=== PATIENT | female | born 1940 | race Caucasian/White ===

== ENCOUNTER → 2017-10-05 | Day surgery (SDC) | payer OTHER ==
[2017-08-31 13:54] VITALS: Ht 167.6 cm; Wt 102.3 kg
[~2017-10-05] VITALS: Ht 167.6 cm; Wt 102.3 kg
[~2017-10-05] MED LIST: 500ML BSS 0.3ML EPI 1:1000PF IRRIG ONE; ACETAMINOPHEN 325 MG TAB PO PRN; AMVISC PLUS 0.8ML SYRINGE INT OCU ONE; ASPI81TA28 PO; ATROPINE SULFATE 0.1 MG/ML 5ML SYR IV PRN; BSS FLUSH ONE; CALC600T37 PO; CALC625T PO; CYAN500T PO; EpHEDrine SULFATE INJ 50 MG/ML AMP IV PRN; EpINEphrine INJ 1MG/ML AMP 1 MG/ML AMP ONE; FENTANYL CITRATE INJ 50 MCG/1 ML 2 ML VIAL ONE; HYZ/10015 PO; LANS15CA6 PO; LIDOCAINE 3.5% OPH GEL PER APPLICATION CHARGE ONE; LIDOCAINE HCL 1% MPF 2 ML VIAL ONE; MIDAZOLAM HCL 1 MG/ML 2ML VIAL ONE; MULTTAB58 PO; OXYM0.0592; PHENYLEPHRINE HCL 10% OP SOLN PER DROP CHARGE OPL SCH; POVIDONE-IODINE OP SOLN 30 ML BTL ONE; PROPARACAINE 0.5% OP SOLN PER DROP CHARGE OPL SCH; SIMV10TA2 PO; TOBRAMYCIN/DEXAMETHASONE OPH OINT PER APPLN CHARGE ONE
[2017-10-05] MEDS: PHENYLEPHRINE HCL 2.5% OP SOLN PER DROP CHARGE OPL SCH ×2 (10:27→10:36)
[2017-10-05] MEDS: TROPICAMIDE 1% OP SOLN PER DROP CHARGE OPL SCH ×2 (10:31→10:37)
[2017-10-05] MEDS: CYCLOPENTOLATE HCL 1% OP SOLN PER DROP CHARGE OPL SCH ×2 (10:32→10:38)
[2017-10-05] MEDS: KETOROLAC 0.5% OP SOLN PER DROP CHARGE OPL SCH ×2 (10:33→10:39)
[2017-10-05] MEDS: GATIFLOXACIN OP SOLN PER DROP CHARGE OPL SCH ×2 (10:34→10:40)
--- NOTE | 2017-10-05 10:52 | History & Physical Bridge - [place] ---
H&P Re-Evaluation Bridge Note: I have examined the patient, reviewed the History & Physical and in the interval since the performance of the History & Physical I have noted the following changes of clinical significance: Diagnosis: Left Cataract Procedure: Left Cataract Removal with Lens Implant No changes noted
--- NOTE | 2017-10-05 11:21 | [facility] Operative Report ---
Operative Report Date of Service Oct 05, 2017. Operative Report 1. PREOPERATIVE DIAGNOSIS: Cataract of the left eye. 2. POSTOPERATIVE DIAGNOSIS: Same. 3. PROCEDURE: Phacoemulsification with intraocular lens implantation of the left eye. SURGEON: Dr. Blake Calle. ANESTHESIA: Topical Lidocaine gel, 1% Non- Preserved intracameral Lidocaine, and monitored intravenous sedation. INDICATIONS FOR THE PROCEDURE: The patient is a 76 - year-old female with a history of cataract of the left eye causing significant visual impairment. The details of the proposed procedure were explained to the patient who asked appropriate questions and following discussion of all risks, benefits and alternatives agreed to have the procedure done. 4. OPERATION AND FINDINGS: DESCRIPTION OF PROCEDURE: After informed consent was obtained, the patient was brought to the Operating Room at the [facility]. The patient was placed in a supine position and then the left eye was prepped and draped in the usual sterile fashion for intraocular surgery. A drop of topical Lidocaine gel was placed in the operative eye. A wire lid speculum was then placed in the fornices. A corneal paracentesis was then created temporally. The Non-Preserved Lidocaine was then instilled into the anterior chamber. The anterior chamber was then pressurized with viscoelastic. A 2.0 mm clear corneal incision was then created temporally. A cystotome was inserted into the anterior chamber and used to create a tear in the anterior lens capsule. This capsular tear was then used to create a small flap and the flap was dragged in a counterclockwise direction in order to create a continuous curvilinear capsulorrhexis. Hydrodissection was accomplished with balanced salt solution. Phacoemulsification of the lens nucleus was then performed in a standard [id number] technique. The phaco time was 30 seconds with an average power of 16 %. The remaining cortical material was removed using irrigation aspiration. The capsular bag was then filled with viscoelastic. A [employer]ch [employer] Lomb MI60L +19.0 diopters lens was then loaded into the injector and injected into the capsular bag. The remaining viscoelastic was removed with the irrigation aspiration handpiece. The wound was hydrated and then checked and found to be watertight. The intraocular pressure was checked and found to be adequate. The wire lid speculum was removed and the patient's face was cleaned and dried. TobraDex ointment was placed in the inferior fornix. The patient was discharged to the Recovery Room having tolerated the procedure well. There were no complications. The patient will be seen tomorrow in the office for follow-up. I attest to the content of the Intraoperative Record and any orders documented therein. Any exceptions are noted below.
--- NOTE | 2017-10-05 11:22 | Discharge Instructions-SurgCtr ---
Discharge Instructions Date of Service Oct 05, 2017. Visit Reason for Visit: Cataract Left Eye Discharge Discharge Diagnosis / Problem: cataract Discharge Goals Goal(s): Improve function Medications Stopped Medications Name(s): Did not take medications today. Activity Recommendations Activity Limitations: per Instructions/Follow-up section Anesthesia . Post Anesthesia Instructions: If you have had General Anesthesia or IV Sedation: * Do not drive today. * Resume driving when surgeon permits. * Do not make important decisions or sign legal documents today. * Call surgeon for: 1. Temperature elevations greater than 101 degrees F. 2. Uncontrollable pain. 3. Excessive bleeding. 4. Persistent nausea and vomiting. 5. Medication intolerance (nausea, vomiting or rash). * For nausea and vomiting use only clear liquids such as: tea, soda, bouillon until nausea subsides, then gradually increase diet as tolerated. * If you have any concerns or questions, call your surgeon's office. If physician is unavailable and it is an emergency, call 911 or go to the nearest emergency room. . Diet Recommendations Home Diet: resume previous diet Procedures Procedures Performed: Left Cataract Phacoemulsification With Intraocular Lens Implant Pending Studies Studies pending at discharge: no Medical Emergencies . Who to Call and When: Medical Emergencies: If at any time you feel your situation is an emergency, please call 911 immediately. . Non-Emergent Contact Non-Emergency issues call your: Credit Risk Specialist . . "Provider Documentation" section prepared by Blake Calle. .
[2017-10-05 11:26] VITALS: TEMP 36.9
--- NOTE | 2017-10-05 11:42 | Anesthesia Progress Nt - [facility] ---
Anesthesia Post Op Note Date & Time Oct 05, 2017 at 11:42 Vital Signs Pain Intensity: 0 Vital Signs Past 12 Hours Date Time Temp Pulse Resp B/P (MAP) Pulse Ox O2 Delivery O2 Flow Rate FiO2 10/05/17 11:26 36.9 82 16 178/82 (114) 95 Room Air 10/05/17 10:16 36.6 92 20 161/85 (110) 94 Room Air Notes Mental Status: alert / awake / arousable, participated in evaluation Pt Amnestic to Procedure: Yes Nausea / Vomiting: adequately controlled Pain: adequately controlled Airway Patency, RR, SpO2: stable & adequate BP & HR: stable & adequate Hydration State: stable & adequate Anesthetic Complications: no major complications apparent
[2017-10-05 11:49] VITALS: BP 137/82; PULSE 78; O2SAT 95
== END | disposition home or self-care (01) ==
LOC: X.SURG 09:49
PROVIDERS: ATTEND Ophthalmology
DX: E11.36 Type 2 diabetes mellitus with diabetic cataract (principal); H26.9 Unspecified cataract; I10 Essential (primary) hypertension; Z98.890 Other specified postprocedural states; Z98.818 Other dental procedure status; Z98.51 Tubal ligation status; Z90.13 Acquired absence of bilateral breasts and nipples; Z90.49 Acquired absence of other specified parts of digestive tract; Z79.899 Other long term (current) drug therapy; Z79.82 Long term (current) use of aspirin

== ENCOUNTER → 2017-11-02 | Day surgery (SDC) | payer OTHER ==
[2017-10-12 09:21] VITALS: Ht 167.6 cm; Wt 102.3 kg
[~2017-11-02] VITALS: Ht 167.6 cm; Wt 102.3 kg
[~2017-11-02] MED LIST changes: +CITA10TA8 PO; -FENTANYL CITRATE INJ 50 MCG/1 ML 2 ML VIAL ONE; +LACTATED RINGER'S 1000ML 500 ML IV SCH; +OCUCOAT 1 ML SOLN IO ONE; -PHENYLEPHRINE HCL 10% OP SOLN PER DROP CHARGE OPL SCH; +PHENYLEPHRINE HCL 10% OP SOLN PER DROP CHARGE OPR SCH; -PROPARACAINE 0.5% OP SOLN PER DROP CHARGE OPL SCH; +PROPARACAINE 0.5% OP SOLN PER DROP CHARGE OPR SCH
[2017-11-02] MEDS: PHENYLEPHRINE HCL 2.5% OP SOLN PER DROP CHARGE OPR SCH ×2 (09:48→09:53)
[2017-11-02] MEDS: TROPICAMIDE 1% OP SOLN PER DROP CHARGE OPR SCH ×2 (09:49→09:54)
[2017-11-02] MEDS: CYCLOPENTOLATE HCL 1% OP SOLN PER DROP CHARGE OPR SCH ×2 (09:50→09:55)
[2017-11-02] MEDS: KETOROLAC 0.5% OP SOLN PER DROP CHARGE OPR SCH ×2 (09:51→09:56)
[2017-11-02] MEDS: GATIFLOXACIN OP SOLN PER DROP CHARGE OPR SCH ×2 (09:52→10:09)
--- NOTE | 2017-11-02 10:06 | History & Physical Bridge - [place] ---
H&P Re-Evaluation Bridge Note: I have examined the patient, reviewed the History & Physical and in the interval since the performance of the History & Physical I have noted the following changes of clinical significance: No changes noted
--- NOTE | 2017-11-02 10:38 | [facility] Operative Report ---
Operative Report Date of Service Nov 02, 2017. Operative Report 1. PREOPERATIVE DIAGNOSIS: Cataract of the right eye. 2. POSTOPERATIVE DIAGNOSIS: Same. 3. PROCEDURE: Phacoemulsification with intraocular lens implantation of the right eye. SURGEON: Dr. Blake Calle. ANESTHESIA: Topical Lidocaine gel, 1% Non- Preserved intracameral Lidocaine, and monitored intravenous sedation. INDICATIONS FOR THE PROCEDURE: The patient is a 76 - year-old female with a history of cataract of the right eye causing significant visual impairment. The details of the proposed procedure were explained to the patient who asked appropriate questions and following discussion of all risks, benefits and alternatives agreed to have the procedure done. 4. OPERATION AND FINDINGS: DESCRIPTION OF PROCEDURE: After informed consent was obtained, the patient was brought to the Operating Room at the [facility]. The patient was placed in a supine position and then the right eye was prepped and draped in the usual sterile fashion for intraocular surgery. A drop of topical Lidocaine gel was placed in the operative eye. A wire lid speculum was then placed in the fornices. A corneal paracentesis was then created temporally. The Non-Preserved Lidocaine was then instilled into the anterior chamber. The anterior chamber was then pressurized with viscoelastic. A 2.0 mm clear corneal incision was then created temporally. A cystotome was inserted into the anterior chamber and used to create a tear in the anterior lens capsule. This capsular tear was then used to create a small flap and the flap was dragged in a counterclockwise direction in order to create a continuous curvilinear capsulorrhexis. Hydrodissection was accomplished with balanced salt solution. Phacoemulsification of the lens nucleus was then performed in a standard [id number] technique. The phaco time was 22 seconds with an average power of 14 %. The remaining cortical material was removed using irrigation aspiration. The capsular bag was then filled with viscoelastic. A Bausch [employer] Lomb MI60L +18.5 diopters lens was then loaded into the injector and injected into the capsular bag. The remaining viscoelastic was removed with the irrigation aspiration handpiece. The wound was hydrated and then checked and found to be watertight. The intraocular pressure was checked and found to be adequate. The wire lid speculum was removed and the patient's face was cleaned and dried. TobraDex ointment was placed in the inferior fornix. The patient was discharged to the Recovery Room having tolerated the procedure well. There were no complications. The patient will be seen tomorrow in the office for follow-up. I attest to the content of the Intraoperative Record and any orders documented therein. Any exceptions are noted below.
--- NOTE | 2017-11-02 10:38 | Discharge Instructions-SurgCtr ---
Discharge Instructions Date of Service Nov 02, 2017. Visit Reason for Visit: Cataract Right Eye Discharge Discharge Diagnosis / Problem: cataract Discharge Goals Goal(s): Improve function Activity Recommendations Activity Limitations: per Instructions/Follow-up section Anesthesia . Post Anesthesia Instructions: If you have had General Anesthesia or IV Sedation: * Do not drive today. * Resume driving when surgeon permits. * Do not make important decisions or sign legal documents today. * Call surgeon for: 1. Temperature elevations greater than 101 degrees F. 2. Uncontrollable pain. 3. Excessive bleeding. 4. Persistent nausea and vomiting. 5. Medication intolerance (nausea, vomiting or rash). * For nausea and vomiting use only clear liquids such as: tea, soda, bouillon until nausea subsides, then gradually increase diet as tolerated. * If you have any concerns or questions, call your surgeon's office. If physician is unavailable and it is an emergency, call 911 or go to the nearest emergency room. . Diet Recommendations Home Diet: resume previous diet Procedures Procedures Performed: Right Cataract Phacoemulsification With Intraocular Lens Implant Pending Studies Studies pending at discharge: no Medical Emergencies . Who to Call and When: Medical Emergencies: If at any time you feel your situation is an emergency, please call 911 immediately. . Non-Emergent Contact Non-Emergency issues call your: Lpn Cma . . "Provider Documentation" section prepared by Blake Calle. .
[2017-11-02 10:40] VITALS: TEMP 36.8
--- NOTE | 2017-11-02 10:51 | Anesthesia Progress Nt - [facility] ---
Anesthesia Post Op Note Date & Time Nov 02, 2017 at 10:51 Vital Signs Pain Intensity: 0 Vital Signs Past 12 Hours Date Time Temp Pulse Resp B/P (MAP) Pulse Ox O2 Delivery O2 Flow Rate FiO2 11/02/17 10:40 36.8 71 14 146/86 (106) 97 Room Air 11/02/17 09:39 36.5 76 18 166/91 (116) 96 Room Air Notes Mental Status: alert / awake / arousable, participated in evaluation Pt Amnestic to Procedure: Yes Nausea / Vomiting: adequately controlled Pain: adequately controlled Airway Patency, RR, SpO2: stable & adequate BP & HR: stable & adequate Hydration State: stable & adequate Anesthetic Complications: no major complications apparent
[2017-11-02 10:57] VITALS: BP 135/91; PULSE 80; O2SAT 96
== END | disposition home or self-care (01) ==
LOC: X.SURG 09:19
PROVIDERS: ATTEND Ophthalmology
DX: H26.9 Unspecified cataract (principal); I10 Essential (primary) hypertension; Z98.42 Cataract extraction status, left eye; F32.9 Major depressive disorder, single episode, unspecified; E78.5 Hyperlipidemia, unspecified; Z79.82 Long term (current) use of aspirin; Z87.891 Personal history of nicotine dependence

== ENCOUNTER 2021-11-16 22:19 | Inpatient (IN) ==
[2021-11-16] MEDS ORDERED: MoRPHine SULFATE 4 MG/ML 1 ML CARP\\VIAL IV STA (22:47)
[2021-11-16] MEDS ORDERED: ONDANSETRON INJ 2 MG/ML 2 ML VIAL IV STA (22:47)
--- NOTE | 2021-11-16 22:59 | Emergency Department Note ---
History of Present Illness General Chief complaint: Flank Pain Stated complaint: BACK PAIN Time Seen by Provider: 11/16/21 22:43 History of Present Illness Maximum Pain Intensity: 10 This 80-year-old presents to the ER complaining of severe sudden onset of flank pain Location: Left flank Quality: Severe Severity: Severe Duration: This evening Timing: This evening Context: Patient was concerned and came in Modifying factors: better with nothing; worse with nothing Patient denies prior history of kidney stones. No fall. Patient denies chest pain, dyspnea, fevers, urinary symptoms. She states the pain is making her nauseated. She tried Tylenol with no relief. Home Medications Medication Instructions Recorded Confirmed Type aspirin 81 mg tablet,delayed 81 mg PO DAILY 11/16/21 11/16/21 History release calcium carbonate 600 mg-vitamin 2 tab PO DAILY 11/16/21 11/16/21 History D3 5 mcg (200 unit) tablet (Calcium 600 + D(3)) calcium polycarbophil 625 mg 1,250 mg PO DAILY 11/16/21 11/16/21 History tablet (FiberCon) citalopram 10 mg tablet (Celexa) 10 mg PO DAILY 11/16/21 11/16/21 History cyanocobalamin (vitamin B-12) 500 500 mcg PO DAILY 11/16/21 11/16/21 History mcg tablet (Vitamin B-12) hydrochlorothiazide 25 mg tablet 12.5 mg PO DAILY 11/16/21 11/16/21 History losartan 100 mg tablet 100 mg PO DAILY 11/16/21 11/16/21 History metformin 500 mg tablet,extended 500 mg PO DAILY 11/16/21 11/16/21 History release 24 hr multivitamin 1 tab PO DAILY 11/16/21 11/16/21 History simvastatin 10 mg tablet 10 mg PO DAILY 11/16/21 11/16/21 History Allergies Allergy/AdvReac Type Severity Reaction Status Date / Time Estrogens AdvReac Intermediate MIGRAINES Verified 11/16/21 23:15 medroxyprogesterone AdvReac Intermediate MIGRAINES Verified 11/16/21 23:15 Past Med/Surg History Medical History Breast cancer Diabetes Surgical History H/O mastectomy Social History Smoking Status: Never smoker Preferred Language: Austrian Feels Safe at Home: Yes Review of Systems A total of 10 systems reviewed and were otherwise negative Physical Exam Vital Signs Vital Signs - 24 hr 11/16/21 22:31 11/16/21 23:57 Temperature 36.9 C Temperature Source Temporal Artery Scan Pulse Rate 90 85 Pulse Rate [Finger] 94 H Respiratory Rate 16 18 Respiratory Effort / Characteristics Non-Labored Spontaneous Respiratory Depth Normal Blood Pressure 223/114 H Blood Pressure [Left Arm] 167/117 H Blood Pressure Mean 150 Blood Pressure Mean [Left Arm] 133 Blood Pressure Position [Left Arm] Lying Pulse Oximetry 95 92 Oxygen Delivery Method Room Air Room Air Sepsis Recent Fever Within 48 Hours No Sepsis New/Unexplained Change in Mental Status N/A Sepsis Action Taken by Nursing No Action Required VITALS: Vitals are noted on the nurse's note and reviewed by myself. Vital signs hypertensive. GENERAL: Pleasant female pacing the room who appears in pain, in no acute distress, nondiaphoretic, well-developed well-nourished. SKIN: The skin was without rashes, erythema, edema, or bruising. There is no tenting of the skin. Capillary reflex less than 2 seconds. HEAD: Normocephalic atraumatic. EARS: External auditory canals clear, EYES: Pupils equal round and reactive to light and accommodation. Conjunctivae without injection, sclerae without icterus. Extraocular movements intact. NOSE: Patent, turbinates without inflammation or discharge. MOUTH: Mucous membranes moist. Pharynx without erythema or exudate. Uvula midline. Airway patent. Tongue does not deviate. NECK: Supple without nuchal rigidity. No lymphadenopathy. No thyromegaly. Cervical spine is nontender. No JVD. HEART: Regular rate and rhythm LUNGS: Clear to auscultation bilaterally without wheezes, rales or rhonchi. No retractions or accessory muscle use. ABDOMEN: Positive bowel sounds x 4. Normal tympanic percussion. Soft, nontender, without masses or organomegaly. Capellan sign negative. No guarding or rebound tenderness. No CVA tenderness MUSCULOSKELETAL: No muscle atrophy, erythema, or edema noted. NEURO: Patient was alert and oriented to person place and time. Normal sensation to light and sharp touch. No focal neurological deficits. Course Administered Medications Discontinued Medications Hydromorphone HCl (Hydromorphone Inj 0.5 Mg/0.5 Ml Syr) 0.5 mg IV NOW STA Stop: 11/16/21 23:15 Last Admin: 11/16/21 23:18 Dose: 0.5 mg Documented by: [id number] Hydromorphone HCl (Hydromorphone Inj 0.5 Mg/0.5 Ml Syr) 0.5 mg IV NOW STA Stop: 11/16/21 23:53 Last Admin: 11/16/21 23:54 Dose: 0.5 mg Documented by: [id number] Sodium Chloride (Nss 1000ml) 500 mls @ 999 mls/hr IV .Q31M ONE Stop: 11/17/21 01:03 Last Infusion: 11/17/21 01:43 Dose: 0 mls/hr Documented by: [id number] Admin: 11/17/21 00:54 Dose: 999 mls/hr Documented by: [id number] Ioversol (Optiray 320 100ml) 95 ml IV ONCE ONE Stop: 11/17/21 00:18 Last Admin: 11/17/21 00:18 Dose: 95 ml Documented by: [id number] Morphine Sulfate (Morphine Sulfate 4 Mg/Ml 1 Ml Carp\Vial) 4 mg IV NOW STA Stop: 11/16/21 22:48 Last Admin: 11/16/21 22:57 Dose: 4 mg Documented by: [id number] Ondansetron HCl (Ondansetron Inj 2 Mg/Ml 2 Ml Vial) 4 mg IV NOW STA Stop: 11/16/21 22:48 Last Admin: 11/16/21 22:58 Dose: 4 mg Documented by: [id number] Tamsulosin HCl (Tamsulosin Hcl 0.4 Mg Cap) 0.4 mg PO NOW ONE Stop: 11/17/21 01:01 Last Admin: 11/17/21 01:16 Dose: 0.4 mg Documented by: [id number] Medical Decision Making Medical Records Attestation: I reviewed the patient's medical records. Home Medications Current Medication List: was personally reviewed by me Laboratory Data Attestation: I reviewed the patient's lab results. Result diagrams: 11/16/21 22:57 11/16/21 22:57 Lab Results 02/20/22 02/20/22 02/21/22 Range/Units 22:57 22:57 00:40 WBC 12.81 H (4.8-10.8) K/uL RBC 4.67 (4.2-5.4) M/uL Hgb 14.9 (12.0-16.0) g/dL Hct 43.5 (37-47) % MCV 93.1 (80-100) fL MCH 31.9 (25-34) pg MCHC 34.3 (32-36) g/dL RDW Std Deviation 41.1 (36.4-46.3) fL RDW Coeff of [place] 12.2 (11.5-14.5) % Plt Count 275 (130-400) K/uL MPV 11.2 H (7.4-10.4) fL Immature Gran % (Auto) 0.1 % Neut % (Auto) 69.0 % Lymph % (Auto) 21.3 % [place] % (Auto) 7.7 % Eos % (Auto) 1.6 % Baso % (Auto) 0.3 % Neut # (Auto) 8.84 H (1.4-6.5) K/uL Lymph # (Auto) 2.73 (1.2-3.4) K/uL [place] # (Auto) 0.98 H (0.11-0.59) K/uL Eos # (Auto) 0.21 (0-0.5) K/uL Baso # (Auto) 0.04 (0-0.2) K/uL Immature Gran # (Auto) 0.01 (0.00-0.02) K/uL Sodium 133 L (136-145) mmol/L Potassium 4.0 (3.5-5.1) mmol/L Chloride 101 (98-107) mmol/L Carbon Dioxide 23 (21-32) mmol/L Anion Gap 9 (3-11) BUN 18 (6-23) mg/dl Creatinine 1.55 H (0.6-1.2) mg/dl Est Cr Clr Drug Dosing 34.8 ml/min Est GFR ( Amer) 36.3 ml/min Est GFR (Non-Af Amer) 31.3 ml/min BUN/Creatinine Ratio 11.6 (10-20) Glucose 221 H (70-99(Fasting)) mg/dl Calcium 9.9 (8.5-10.1) mg/dl Total Bilirubin 0.5 (0.2-1.0) mg/dl AST 19 (13-39) U/L ALT 27 (7-52) U/L Alkaline Phosphatase 76 (34-104) U/L Total Protein 7.0 (6.0-8.3) gm/dl Albumin 4.2 (3.4-5.0) gm/dl Globulin 2.8 (2.5-4.0) gm/dl Albumin/Globulin Ratio 1.5 (0.9-2) Lipase 27 (11-82) U/L Urine Color Yellow Urine Appearance Cloudy A (Clear) Urine pH 6.0 (4.5-7.5) Ur Specific [place] 1.022 (1.000-1.030) Urine Protein 2+ H (Negative) Urine Glucose (UA) Negative (Negative) Urine Ketones Trace H (Negative) Urine Blood 2+ H (Negative) Urine Nitrite Negative (Negative) Urine Bilirubin Negative (Negative) Urine Urobilinogen Negative (Negative) Ur Leukocyte Esterase Trace H (Negative) Urine WBC (Auto) 5-10 H (0-5) /hpf Urine RBC (Auto) 10-30 H (0-4) /hpf U Hyaline Cast (Auto) 1-5 (0-5) /lpf U Epithel Cells (Auto) >30 H (0-5) /lpf Urine Bacteria (Auto) 1+ H (Negative) Urine Crystals Not Reportable Calcium Oxalate Crystal Present A (None Prsent) SARS-CoV-2, RNA, NAAT (NEGATIVE) 11/17/21 Range/Units 01:21 WBC (4.8-10.8) K/uL RBC (4.2-5.4) M/uL Hgb (12.0-16.0) g/dL Hct (37-47) % MCV (80-100) fL MCH (25-34) pg MCHC (32-36) g/dL RDW Std Deviation (36.4-46.3) fL RDW Coeff of [place] (11.5-14.5) % Plt Count (130-400) K/uL MPV (7.4-10.4) fL Immature Gran % (Auto) % Neut % (Auto) % Lymph % (Auto) % [place] % (Auto) % Eos % (Auto) % Baso % (Auto) % Neut # (Auto) (1.4-6.5) K/uL Lymph # (Auto) (1.2-3.4) K/uL [place] # (Auto) (0.11-0.59) K/uL Eos # (Auto) (0-0.5) K/uL Baso # (Auto) (0-0.2) K/uL Immature Gran # (Auto) (0.00-0.02) K/uL Sodium (136-145) mmol/L Potassium (3.5-5.1) mmol/L Chloride (98-107) mmol/L Carbon Dioxide (21-32) mmol/L Anion Gap (3-11) BUN (6-23) mg/dl Creatinine (0.6-1.2) mg/dl Est Cr Clr Drug Dosing ml/min Est GFR ( Amer) ml/min Est GFR (Non-Af Amer) ml/min BUN/Creatinine Ratio (10-20) Glucose (70-99(Fasting)) mg/dl Calcium (8.5-10.1) mg/dl Total Bilirubin (0.2-1.0) mg/dl AST (13-39) U/L ALT (7-52) U/L Alkaline Phosphatase (34-104) U/L Total Protein (6.0-8.3) gm/dl Albumin (3.4-5.0) gm/dl Globulin (2.5-4.0) gm/dl Albumin/Globulin Ratio (0.9-2) Lipase (11-82) U/L Urine Color Urine Appearance (Clear) Urine pH (4.5-7.5) Ur Specific [place] (1.000-1.030) Urine Protein (Negative) Urine Glucose (UA) (Negative) Urine Ketones (Negative) Urine Blood (Negative) Urine Nitrite (Negative) Urine Bilirubin (Negative) Urine Urobilinogen (Negative) Ur Leukocyte Esterase (Negative) Urine WBC (Auto) (0-5) /hpf Urine RBC (Auto) (0-4) /hpf U Hyaline Cast (Auto) (0-5) /lpf U Epithel Cells (Auto) (0-5) /lpf Urine Bacteria (Auto) (Negative) Urine Crystals Calcium Oxalate Crystal (None Prsent) SARS-CoV-2, RNA, NAAT NEGATIVE (NEGATIVE) Imaging Data Attestation: I personally reviewed and interpreted this imaging study as follows: MDM Narrative Prior records/ancillary studies reviewed. Triage Nursing notes reviewed. Additional history obtained from the family. The patient's history was concerning for flank pain. Differential diagnosis: Etiologies such as renal colic, appendicitis, diverticulitis, mesenteric ischemia, aortic pathology, infections, inflammatory bowel disease, PUD, biliary pathology, UTI, as well as others were entertained. Physical examination findings: As above. ER treatment provided: Morphine, Zofran, Flomax, Rocephin On reassessment the patient felt better. Diagnostic interpretation by me: The labs revealed leukocytosis. Urinalysis revealed concerns for possible infection versus contamination and sent for culture. No prior urine culture Imaging studies: Preliminary Findings Only See Final Report For Complete Findings CT ABDOMEN & PELVIS With Contrast: 5 mm stone at the left ureterovesicular junction perched into the bladder with mild hydronephrosis and perinephric stranding. Nonobstructing 4 mm right kidney stone. Several additional left kidney stones measuring up to 3 mm. Hepatic steatosis. Surgically absent gallbladder. Normal appendix. Diverticulosis coli. Cecum is incidentally flipped anteriorly into the right upper abdomen. Small fat-containing ventral hernia. Radiologist: Shakeel Brar MD Consultation: A consultation was placed with the hospitalist. The case was discussed and diagnostics were reviewed. The patient was evaluated in the ER for further treatment. It appears that the patient has isolated renal colic from a left sided stone. Patient required multiple rounds of pain meds. Medicine was consulted. She will be admitted. Urine was reviewed and concerns for possible infection versus contamination. Urine culture was placed. Patient was given antibiotics for possible infection. By the evaluation outlined above emergent etiologies such as appendicitis, diverticulitis, mesenteric ischemia, aortic pathology, inflammatory bowel disease, PUD, biliary pathology, as well as others were deemed relatively unlikely. The pt/daughter informed about the findings as listed above. All questions were answered and pleased with the treatment. The chart was completed utilizing [employer] voice recognition software. Grammatical errors, random word insertions, pronoun errors, and incomplete sentences are an occassional consequence of this system due to software limitations, ambient noise, and hardware issues. Any formal questions or c oncerns about the content, text, or information contained within the body of this dictation should be directly addressed to the physician library clerical assistant for clarification. Impression & Plan Renal colic on left side, Ureterolithiasis Discharge Plan Visit Data Chief Complaint: Flank Pain Stated Complaint: BACK PAIN ED Provider: Marion Elliott ED Midlevel Provider: Kimberly Verdin Discharge Problem: Renal colic on left side, Ureterolithiasis Patient Disposition: Admitted As Inpatient Condition: Good Forms Stand Alone Forms: My [facility] [place] [employer] Prescriptions Prescriptions: No Action multivitamin [Neil-One] Tablet 1 tab PO DAILY RF: 0 citalopram [Celexa] 10 mg Tablet 10 mg PO DAILY RF: 0 simvastatin 10 mg Tablet 10 mg PO DAILY RF: 0 calcium carbonate-vitamin D3 [Calcium 600 + D(3)] 600 mg-5 mcg (200 unit) Tablet 2 tab PO DAILY RF: 0 aspirin 81 mg Tablet,Delayed Release (Dr/Ec) 81 mg PO DAILY RF: 0 cyanocobalamin (vitamin B-12) [Vitamin B-12] 500 mcg Tablet 500 mcg PO DAILY RF: 0 calcium polycarbophil [FiberCon] 625 mg Tablet 1,250 mg PO DAILY RF: 0 hydrochlorothiazide 25 mg Tablet 12.5 mg PO DAILY RF: 0 losartan 100 mg Tablet 100 mg PO DAILY RF: 0 metformin 500 mg Tablet Extended Release 24 Hr 500 mg PO DAILY RF: 0 Referrals Referrals: Chris Frank MD [Primary Care Provider] -
[2021-11-16] MEDS ORDERED: HYDROmorphone INJ 0.5 MG/0.5 ML SYR IV STA ×2 (23:14→23:52)
[2021-11-16 23:26] LABS: Albumin Globulin Ratio 1.5 (0.9-2); Albumin Level 4.2 gm/dl (3.4-5.0); BUN Creatinine Ratio 11.6 (10-20); Bilirubin,Total 0.5 mg/dl (0.2-1.0); Calcium 9.9 mg/dl (8.5-10.1); Creatinine Clr Calc Pharmacy 34.8 ml/min; Est GFR (African American) 36.3 ml/min; Est GFR (Non-African American) 31.3 ml/min; Globulin 2.8 gm/dl (2.5-4.0)
[2021-11-16 23:50] LABS: Basophils # (auto) 0.04 K/uL (0-0.2); Basophils % (auto) 0.3 %; Eosinophils # (auto) 0.21 K/uL (0-0.5); Eosinophils % (auto) 1.6 %; Hematocrit (blood only) 43.5 % (37-47); Hemoglobin 14.9 g/dL (12.0-16.0); Immature Granulocytes # (auto) 0.01 K/uL (0.00-0.02); Immature Granulocytes % (auto) 0.1 %; Lymphocytes # (auto) 2.73 K/uL (1.2-3.4); Lymphocytes % (auto) 21.3 %; Mean Corpuscular Hemoglobin 31.9 pg (25-34); Mean Corpuscular Hgb Conc 34.3 g/dL (32-36); Mean Corpuscular Volume 93.1 fL (80-100); Mean Platelet Volume 11.2 fL (7.4-10.4); Monocytes # (auto) 0.98 K/uL (0.11-0.59); Monocytes % (auto) 7.7 %; Neutrophils # (auto) 8.84 K/uL (1.4-6.5); Platelet Count 275 K/uL (130-400); RDW Coefficient of Variation 12.2 % (11.5-14.5); RDW Standard Deviation 41.1 fL (36.4-46.3); Red Blood Count 4.67 M/uL (4.2-5.4); White Blood Count 12.81 K/uL (4.8-10.8)
[2021-11-17] MEDS ORDERED: OPTIRAY 320 100ml IV ONE (00:17)
[2021-11-17] MEDS ORDERED: SODIUM CHLORIDE 0.9% 1000ML 500 ML IV ONE (00:33)
[2021-11-17] MEDS ORDERED: TAMSULOSIN HCL 0.4 MG CAP PO ONE (01:00)
--- NOTE | 2021-11-17 01:02 | Emergency Department Note ---
ED Visit Note I have been personally involved in this case with the PA. I agree with the diagnosis and management decisions and have been personally involved in decision making of this case. Please see Hawa Verdin PA-C's notes for further details of the history, physical and visit. .
[2021-11-17 01:04] LABS: Appearance Urine Cloudy (Clear); Bilirubin Urine Negative (Negative); Blood Urine 2+ (Negative); Color Urine Yellow; Epithelial Cell Urine Auto >30 /lpf (0-5); Glucose Urine UA Negative (Negative); Ketones Urine Trace (Negative); Leukocyte Esterase Urine Trace (Negative); Nitrite Urine Negative (Negative); Protein Urine 2+ (Negative); Specific Gravity Urine 1.022 (1.000-1.030); Urobilinogen Urine Negative (Negative)
[2021-11-17 01:21] LABS: Calcium Oxalate Crystals Urine Present (None Prsent)
[2021-11-17 01:22] LABS: Bacteria Urine Automated 1+ (Negative)
[2021-11-17] MEDS ORDERED: cefTRIAXone SODIUM 2,000 MG/70 ML BAG IV STA (01:43)
--- NOTE | 2021-11-17 02:07 | Urology Consultation ---
Date of Consultation November 17, 2021 Assessment & Plan (1) Renal colic on left side: Patient is being admitted on the hospitalist service. We recommend proceeding as follows: Provide analgesics Provide antiemetics Provide IV fluids for hydration Consider administering Flomax for expulsive therapy Although the urine does not entirely indicative of urinary tract infection the emergency department has treated her empirically with Rocephin. Would recommend continue this medication until culture results are available at which time antibiotics can be further adjusted We will make the patient n.p.o. in case patient needs cystoscopic intervention tomorrow morning. At the present time patient is afebrile and normotensive. Therefore I think a trial of conservative therapy is warranted. Remainder of plan as directed by the primary service Additional recommendations be forthcoming based on her clinical course as it unfolds Supervising Physician Co-Signing Physician Notes I agree with the above documentation. Maintain NPO and we will have the day team assess for possible intervention. History of Present Illness Reason for Consultation: Nephrolithiasis History of Present Illness This is an 80-year-old female who presented to [facility] secondary to left-sided flank pain. Patient notes that she developed left flank pain earlier today. She notes that the pain radiated to the front of her abdomen/pelvic area. She denies any dysuria or hematuria. She denies any fevers but did report occasional shakes and chills. She reported nausea without vomiting. She did not note any provocative factors to her pain but notes that the pain was somewhat palliated with medicines administered in the emergency department. Patient denies any known history of prior kidney stones. In the emergency department the patient had labs and imaging which independently reviewed. CBC revealed white blood cell count was slightly elevated at 12.8. Hemoglobin, hematocrit, and platelet count were all within normal range. Chemistry profile showed sodium was 133. Potassium was 4.0 with a normal BUN. creatinine was elevated at 1.55. Urinalysis showed 2+ blood. It was negative for nitrite. It showed trace leukocyte esterase and 5-10 white blood cells per high-power field. 1+ bacteria was noted. A Covid test was performed was noted to be negative. At the time of my interview she was resting comfortably in bed. Her pain was well controlled and she was in no distress. Allergies Allergy/AdvReac Type Severity Reaction Status Date / Time Estrogens AdvReac Intermediate MIGRAINES Verified 11/16/21 23:15 medroxyprogesterone AdvReac Intermediate MIGRAINES Verified 11/16/21 23:15 Home Medications Medication Instructions Recorded Confirmed Type aspirin 81 mg tablet,delayed 81 mg PO DAILY 11/16/21 11/16/21 History release calcium carbonate 600 mg-vitamin 2 tab PO DAILY 11/16/21 11/16/21 History D3 5 mcg (200 unit) tablet (Calcium 600 + D(3)) calcium polycarbophil 625 mg 1,250 mg PO DAILY 11/16/21 11/16/21 History tablet (FiberCon) citalopram 10 mg tablet (Celexa) 10 mg PO DAILY 11/16/21 11/16/21 History cyanocobalamin (vitamin B-12) 500 500 mcg PO DAILY 11/16/21 11/16/21 History mcg tablet (Vitamin B-12) hydrochlorothiazide 25 mg tablet 12.5 mg PO DAILY 11/16/21 11/16/21 History losartan 100 mg tablet 100 mg PO DAILY 11/16/21 11/16/21 History metformin 500 mg tablet,extended 500 mg PO DAILY 11/16/21 11/16/21 History release 24 hr multivitamin 1 tab PO DAILY 11/16/21 11/16/21 History simvastatin 10 mg tablet 10 mg PO DAILY 11/16/21 11/16/21 History Patient History Medical History Breast cancer Diabetes Surgical History H/O mastectomy Social History Smoking Status: Never smoker Second Hand Exposure: No; Do You Dip or Chew Tobacco: No; Tobacco Cessation Education Requested by Patient: No Hx Alcohol Use: No Hx Substance Use: No Preferred Language: Irish Communication Ability: Effective Grades 9 12 Tutor Required: No Beliefs That Will Affect Care: None Current Living Situation: Spouse Other Information That Helps Us Care for You: No Feels Safe at Home: Yes Safety Concerns: Feels Safe At This Time Assistive Devices: None Review of Systems Constitutional: + chills; no fever Eyes: no diplopia Ear, Nose, Mouth, Throat: no ear pain Respiratory: no cough and no dyspnea Cardiovascular: no chest pain Gastrointestinal: + abdominal pain (Radiating from left flank) and + nausea; no vomiting Genitourinary: + flank pain (Left-sided); no dysuria and no hematuria Musculoskeletal: + back pain (Left flank) Integumentary: no rash Neurologic: no localized weakness Physical Exam Constitutional: well developed and well nourished; no acute distress Eyes: no conjunctival abnormality ENMT: Ears: no hearing impairment Neck: trachea midline Respiratory: normal respiratory effort; no respiratory distress and no labored breathing Cardiovascular: Rate/Rhythm: regular rate and regular rhythm Gastrointestinal (Abdomen): Soft, nontender, nondistended Musculoskeletal: No calf tenderness Skin: no rashes Neurologic: moves all extremities Psychiatric: A+Ox3, euthymic affect Genitourinary: no CVA tenderness Results & Data ([facility] [place]) Vital Signs (Past 12 Hours) Vital Signs Temp Pulse Pulse Resp BP BP Pulse Ox 11/16/21 23:57 85 94 H 18 167/117 H 92 11/16/21 22:31 36.9 C 90 16 223/114 H 95 PG Care Time/CCT Total # of Minutes Spent Total Time Spent with Patient: Total time spent is greater than 50% in coordination of care (as documented) at patient's floor/unit and/or counseling patient: Coding Level of Care Code 27425 Inpt Consult Level 5 Diagnoses Renal colic on left side N23
[2021-11-17] MEDS ORDERED: POLYETHYLENE (MIRALAX) 17 GM PACK PO PRN (03:15)
[2021-11-17] MEDS ORDERED: ACETAMINOPHEN 325 MG TAB PO PRN (03:15)
[2021-11-17] MEDS ORDERED: ONDANSETRON INJ 2 MG/ML 2 ML VIAL IV PRN ×2 (03:15→15:52)
[2021-11-17] MEDS: SODIUM CHLORIDE 0.9% 1000ML 1,000 ML IV SCH ×3 (03:28→19:00)
[2021-11-17] MEDS ORDERED: GLUCAGON FOR INJ 1 MG VIAL IM PRN (03:30)
[2021-11-17] MEDS ORDERED: DEXTROSE 50% 50 ML SYRINGE IV PRN (03:30)
[2021-11-17] MEDS ORDERED: CARBOHYDRATES FOR HYPOGLYCEMIA PO PRN (03:30)
[2021-11-17] MEDS ORDERED: GLUCOSE 10 TABS/TUBE PO PRN (03:30)
[2021-11-17] MEDS ORDERED: GLUCOSE 40% GEL 15 GM TUBE PO PRN (03:30)
[2021-11-17] MEDS: HYDROmorphone INJ 0.5 MG/0.5 ML SYR IV PRN ×4 (03:38→14:29)
--- NOTE | 2021-11-17 04:20 | History and Physical Report ---
DATE OF ADMISSION: 11/17/2021. CHIEF COMPLAINT: Left flank pain. HISTORY OF PRESENT ILLNESS: This is an 80-year-old female with past medical history significant for type 2 diabetes, chronic kidney disease stage III, hyperlipidemia, chronic rhinitis, hypertension, GERD, history of sensorineural hearing loss, presents with left flank pain and found to have kidney stone. The patient says the pain started today in the evening. With pain medications,pain is improved. No blood in the urine. No fever, no chills, no diarrhea or constipation. Has some nausea, no vomiting, no chest pain, no shortness of breath, no cough, no headache, no blurred visions, no earache, no runny nose, no sore throat. Appetite is okay. Currently, resting comfortably and hemodynamically stable. ALLERGIES: ESTROGENS AND PROGESTERONES. PAST MEDICAL HISTORY: As mentioned above. PAST SURGICAL HISTORY: Bilateral mastectomy, tubal ligation, radiation therapy, cataract surgery, cholecystectomy, colonoscopy, dental surgery. MEDICATIONS: The patient is on aspirin 81 mg p.o. daily, calcium plus vitamin D 2 tablets daily, FiberCon 1250 mg p.o. daily, Celexa 10 mg p.o. daily, vitamin B12 500 mcg p.o. daily, hydrochlorothiazide 12.5 mg p.o. daily, losartan 100 mg p.o. daily, metformin 500 mg p.o. daily, multivitamin 1 tablet p.o. daily, simvastatin 10 mg p.o. daily. FAMILY HISTORY: Significant for father has lung disorder and stroke; mother had dementia. Aunt has breast cancer, uncle has lung cancer, another uncle had throat cancer. SOCIAL HISTORY: . Former smoker, quit in 1976, smoked 2 packs a day for 20 years. Alcohol rarely. No drug use. REVIEW OF SYSTEMS: As per HPI. Rest of review is negative. PHYSICAL EXAMINATION: GENERAL: The patient is of moderate build, not in acute distress. VITAL SIGNS: Temperature 36.8, pulse 112, respiratory rate 18, blood pressure 160/71, oxygen 93% on room air. HEENT: Pupils equal, round and reactive to light. Oral mucosa moist. NECK: No JVD or neck masses. CARDIOVASCULAR: S1 and S2 heard. Regular rate and rhythm. No murmur, no gallop. RESPIRATORY SYSTEM: Normal AP diameter. No accessory muscle use. No wheezing, no crackles. ABDOMEN: Soft, bowel sounds present, nontender. No CVA tenderness. No distention, no guarding, no rigidity. CENTRAL NERVOUS SYSTEM: Cranial nerves II-XII grossly intact, nonfocal. EXTREMITIES: No edema, no erythema. LABORATORY DATA: WBC 12.8, hemoglobin 14.9, hematocrit 43.5, platelets 275. Sodium 133, potassium 4, chloride 101, bicarbonate 23, BUN 18, creatinine 1.5, serum glucose 221, calcium 9.9, total bilirubin 0.5, AST 19, ALT 27, alkaline phosphatase 76, total protein 7, lipase 27. Urinalysis, +2 protein, +2 blood, trace leukocyte esterase, +1 bacteria, calcium oxalate crystals present. SARS-CoV-2 RNA negative. IMAGING DATA: CT abdomen and pelvis preliminary report shows 5 mm stone at the left UVJ junction with mild hydronephrosis and perinephric stranding. Nonobstructing 4 mm right kidney stone. Several additional left kidney stones measuring up to 3 mm, hepatic steatosis. Surgically absent gallbladder, normal appendix. ASSESSMENT AND PLAN: An 80-year-old female who presents with left flank pain and found to have kidney stone. 1. Left renal colic: A 5 mm left UVJ junction with mild hydronephrosis, possible pyelonephritis, urinary tract infection. Empirically on Rocephin. N.p.o., IV fluids, pain control with IV Dilaudid p.r.n. and consult urology. Monitor in the medical floor. 2. History of hypertension: Continue losartan and hydrochlorothiazide. We will monitor the blood pressure. 3. Hyperlipidemia: Continue statin. 4. Diabetes: Hold metformin. Place on insulin sliding scale. Currently n.p.o. 5. Depression: Currently on Celexa. 6. History of breast cancer: Status post bilateral mastectomy. 7. Acute kidney injury on chronic kidney disease stage III: Baseline creatinine 0.9, currently 1.5. Avoid nephrotoxic agents. Getting fluids. We will follow the repeat labs in the a.m. 8. Deep venous thrombosis prophylaxis: Sequential compression devices for now. DISPOSITION: We will monitor in the medical floor. PT/OT prior to discharge. Social service to help with discharge planning. Job ID: [id number] [facility]
[2021-11-17] MEDS: INSULIN ASPART PER UNIT SC SCH ×6 (05:08→21:54)
[2021-11-17 07:37] LABS: Basophils # (auto) 0.02 K/uL (0-0.2); Basophils % (auto) 0.1 %; Hematocrit (blood only) 43.5 % (37-47); Immature Granulocytes # (auto) 0.06 K/uL (0.00-0.02); Immature Granulocytes % (auto) 0.3 %; Lymphocytes # (auto) 1.07 K/uL (1.2-3.4); Lymphocytes % (auto) 5.9 %; Mean Corpuscular Hemoglobin 32.1 pg (25-34); Mean Corpuscular Hgb Conc 34.5 g/dL (32-36); Mean Corpuscular Volume 92.9 fL (80-100); Mean Platelet Volume 10.9 fL (7.4-10.4); Monocytes # (auto) 0.73 K/uL (0.11-0.59); Neutrophils # (auto) 16.35 K/uL (1.4-6.5); Neutrophils % (auto) 89.7 %; Platelet Count 296 K/uL (130-400); RDW Coefficient of Variation 12.3 % (11.5-14.5); RDW Standard Deviation 41.4 fL (36.4-46.3); Red Blood Count 4.68 M/uL (4.2-5.4); White Blood Count 18.23 K/uL (4.8-10.8)
[2021-11-17 07:56] LABS: BUN Creatinine Ratio 12.2 (10-20); Calcium 9.5 mg/dl (8.5-10.1); Est GFR (African American) 41.4 ml/min; Est GFR (Non-African American) 35.7 ml/min; Magnesium 1.4 mg/dl (1.7-2.4)
[2021-11-17] MEDS: MULTIVITAMIN TAB PO SCH (08:24)
[2021-11-17] MEDS: SIMVASTATIN 10 MG TAB PO SCH (08:24)
--- NOTE | 2021-11-17 08:24 | CT Scan Report ---
CT SCAN OF THE ABDOMEN AND PELVIS WITH IV CONTRAST CLINICAL HISTORY: Left-sided abdominal/flank pain. COMPARISON STUDY: No priors. TECHNIQUE: Following the IV administration of 95 cc of Optiray 320, CT scan of the abdomen and pelvi s is performed from the lung bases to the proximal femora. Images are reviewed in the axial, sagittal , and coronal planes. IV contrast was administered without complication. A dose lowering technique wa s utilized adhering to the principles of ALARA. There is streak artifact from the right arm which cou ld not be elevated above the abdomen. CT DOSE: 1469.43 mGy.cm FINDINGS: Lung bases: The heart is normal in size and without pericardial effusion. The lung bases are clear ro utine bibasilar scarring/atelectasis. A tiny hiatal hernia is noted. Liver: The contrast-enhanced liver is enlarged, measuring 20.7 cm in length. The liver demonstrates d iffusely diminished attenuation consistent with hepatic steatosis. There is no intrahepatic biliary d uctal dilatation. The hepatic veins and portal veins are patent. Gallbladder: Surgically absent noting clips in the gallbladder fossa. Spleen: Normal in size and attenuation. Pancreas: Unremarkable. Adrenal glands: Unremarkable. Kidneys: The contrast enhanced kidneys demonstrate cortical atrophy. There is an 8 mm obstructing muna culus protruding from the left vesicoureteral junction seen on image #[id number]. This causes moderate left hydroureteronephrosis. There is associated left-sided perinephric and perinephric stranding/fluid. Th ere are at least 5 additional nonobstructing left renal calculi and at least 3 nonobstructing right r enal calculi which measure up to 5 mm. Enhancement of the left kidney is heterogeneous. Abdominal vasculature: The abdominal aorta is normal in course and caliber noting moderate atheroscle rotic calcification. Bowel: There is no bowel obstruction. Mild fecal retention is noted throughout the colon. There are s cattered colonic diverticula without CT evidence of acute diverticulitis. The appendix is well-visua lized and normal. Peritoneum: There is no intraperitoneal free air or abdominal ascites. A large fat-containing supraum bilical hernia seen on image #168. Lymphadenopathy: None. Pelvic viscera: The bladder is normal as visualized. The endometrium appears thickened for age measur ing up to 18 mm. No adnexal lesion is seen. Skeletal structures: The skeletal structures are osteopenic. There is mild lumbosacral spondylosis. N o lytic or blastic lesions are seen. Sclerotic change is seen in the pubic symphysis. IMPRESSION: 1. There is an 8 mm obstructing calculus protruding from the left vesicoureteral junction. This cause s moderate left hydroureteronephrosis. 2. Additional nonobstructing calculi are seen bilaterally. 3. Hepatomegaly and hepatic steatosis. 4. The endometrium is thickened for age measuring up to 1.8 cm. This is not well assessed by CT and n onemergent follow-up with gynecology and pelvic ultrasound is recommended for further assessment. 5. Additional findings as above. ACT 112: Positive. There are findings on this exam that require communication between the performing entity and the patient following Patient Test Result Information Act ([place] Act 112) guidelines. Electronically signed by: Angelito Rocha M.D. 11/17/2021 8:22 AM
[2021-11-17] MEDS: CITALOPRAM 20 MG TAB PO SCH (08:25)
[2021-11-17] MEDS: CALCIUM POLYCARBOPHIL 625MG TAB PO SCH (08:26)
[2021-11-17] MEDS: ASPIRIN 81 MG ECTAB PO SCH (08:27)
[2021-11-17] MEDS: CALCIUM 600MG + VIT D 400 IU TAB PO SCH (08:27)
[2021-11-17] MEDS: CYANOCOBALAMIN (B-12) 500 MCG TABLET PO SCH (08:27)
[2021-11-17] MEDS ORDERED: PHARMACY GLYCEMIC MGMT CONSULT PRN (08:39)
[2021-11-17] MEDS ORDERED: LOSARTAN POTASSIUM 50 MG TAB PO SCH (09:00)
[2021-11-17] MEDS ORDERED: hydroCHLOROthiazide 25 MG TAB PO SCH (09:00)
[2021-11-17 09:38] LABS: Estimated Average Glucose 200 mg/dl; Hemoglobin A1C 8.6 % (4.5-5.6)
--- NOTE | 2021-11-17 10:20 | XRay Report ---
KUB CLINICAL HISTORY: L UVJ stone COMPARISON STUDY: CT of the abdomen and pelvis November 17, 2021 at 12:09 AM. FINDINGS: Moderate left hydroureteronephrosis is again noted. Although partially obscured on this exa m by contrast, a suspected left ureterovesical junction calculus is noted. This measures approximatel y 6 mm. Several calculi within lower pole the right kidney are noted. Bowel gas pattern is normal. Th ere are cholecystectomy clips. IMPRESSION: 1. No significant change in moderate left hydroureteronephrosis. 6 mm left ureterovesical junction ca lculus, partially obscured by contrast. 2. Right-sided nephrolithiasis. ACT 112: Negative or not required by law. Electronically signed by: Narendra Dyson M.D. 11/17/2021 10:18 AM
--- NOTE | 2021-11-17 10:21 | Urology Progress Note ---
Date of Service November 17, 2021 Assessment & Plan (1) Ureterolithiasis: (2) Renal colic on left side: Plan: 80 yo F admitted with left flank pain secondary to left UVJ stone with moderate hydronephrosis. - Patient currently afebrile, nontoxic. - Patient subjectively doing okay, denies stone passage, pain currently tolerable with IV pain medication. - Lab work reviewed - creatinine improved to 1.39, WBC increased to 18.23. - Urine culture pending, currently on IV Ceftriaxone - follow cultures. - CTAP reviewed and notable for 8 mm left UVJ stone into bladder, moderate left hydro; b/l nonobstructing renal stones. - KUB this AM with no significant change in moderate left hydroureteronephrosis. 6 mm left UVJ stone, partially obscured by contrast. - Discussed options for stone management including continued observation/trial of passage vs surgical intervention. - Reviewed case with Dr. Brink, urologist lubrication worker. - Given her leukocytosis and hydronephrosis in the context of obstructing stone that is into bladder, offered stone extraction/treatment and left ureteral stent placement today. - She wishes to discuss options with her family. - Keep NPO at present, strain all urine. - Pt reassessed after her discussion with family, she would like to proceed with surgical intervention today. - Proceed with cystoscopy, Left ureteronephroscopy, retrograde pyelogram, possible ureteral dilation, possible laser lithotripsy or extraction of stone depending on findings. - Risks and benefits to be reviewed with patient by Dr. Brink. OR notified. Preoperative CXR and EKG ordered. Covid test negative. - Will cover with scheduled IV Ceftriaxone preoperatively. - Patient agreeable with above plan, all questions answered. - Continue supportive care and management per hospital team. ATTENDING NOTE: Agree with above. Independently evaluated, assessed, examined, and interviewed. Risks and benefits discussed at length for procedure. These include bleeding, infection, injury to surrounding tissues or organs, and risks associated with anesthesia. Patient states understanding and agrees to proceed. Will sign consent and proceed. Large stone at UO left with severe hydronephrosis and tachycardia with elevated white count and brissa. Plan for cystoscopy with possible left ureteroscopy and stone treatemnt. Admission and Anticipated Discharge Date Admission Date: November 17, 2021 Subjective Patient seen and examined at bedside this AM. Awake, alert and resting in bed. Reports left flank and abdominal pain, improved with analgesics. Voiding spontaneously, no dysuria or hematuria. Notes urinary frequency. No nausea or vomiting at present. Currently NPO. No fever or chills. Offers no additional complaints at present. Review of Systems Constitutional: as per Subjective / HPI Respiratory: no dyspnea Cardiovascular: no chest pain Gastrointestinal: as per Subjective / HPI Genitourinary: as per Subjective / HPI Musculoskeletal: no problem reported Integumentary: no problem reported Neurologic: no problem reported Psychiatric: no problem reported Physical Exam Constitutional: well developed, well nourished and + obese; no acute distress and not ill appearing Respiratory: normal respiratory effort and able to speak in complete sentences; no respiratory distress and no labored breathing Cardiovascular: Extremities: no pedal edema Gastrointestinal (Abdomen): Inspection/Auscultation: abdomen normal to inspection; abdomen not distended Percussion/Palpation: abdomen soft; abdomen nontender and no guarding Musculoskeletal: Head/Neck/Chest: normocephalic and head atraumatic Skin: skin slightly flushed Neurologic: moves all extremities and awake Psychiatric: Orientation: alert, oriented x 3 and cooperative Genitourinary: + CVA tenderness (mild tenderness to palpation on left flank) Results & Data ([facility]) Vital Signs (Past 12 Hours) Vital Signs Temp Pulse Pulse Resp BP BP Pulse Ox 11/17/21 07:20 37 C 114 H 18 149/83 H 94 11/17/21 03:52 37.0 C 99 H 22 178/89 H 93 11/17/21 03:15 37.0 C 99 H 22 178/89 H 93 11/17/21 02:30 107 H 18 160/71 H 93 11/17/21 01:57 106 H 18 149/120 H 91 11/16/21 23:57 85 94 H 18 167/117 H 92 11/16/21 22:31 36.9 C 90 16 223/114 H 95 PG Care Time/CCT Total # of Minutes Spent Total Time Spent with Patient: Total time spent is greater than 50% in coordination of care (as documented) at patient's floor/unit and/or counseling patient: Coding Level of Care Code None Diagnoses Ureterolithiasis N20.1 Renal colic on left side N23
[2021-11-17] MEDS: MAGNESIUM SULFATE / D5W 1 GM/100 ML BAG IV SCH ×2 (11:07→12:51)
[2021-11-17] MEDS: amLODIPine BESYLATE 5 MG TAB PO SCH (11:10)
[2021-11-17] MEDS: MAGNESIUM OXIDE 400 MG TAB PO SCH ×2 (11:10→21:53)
--- NOTE | 2021-11-17 11:55 | XRay Report ---
XR chest 1V portable HISTORY: 80 years-old Female Pre-op preoperative exam. No acute chest complaints COMPARISON: KUB and CT abdomen and pelvis studies of same day TECHNIQUE: Portable AP view of the chest FINDINGS: Cardiac silhouette is enlarged. Mild right hemidiaphragmatic elevation. No pneumothorax, pleural effu viky, airspace consolidation or overt pulmonary edema. Degenerative changes of the shoulders and spin e. Surgical clips of the right axilla. IMPRESSION: Cardiomegaly without acute process. ACT 112: Negative or not required by law. The above report was generated using voice recognition software. It may contain grammatical, syntax o r spelling errors. Electronically signed by: Juan David Riley M.D. 11/17/2021 11:54 AM
[2021-11-17] MEDS ORDERED: INSULIN GLARGINE SOLOSTAR 100 UNITS/ML 3 ML PEN SC ONE (12:15)
--- NOTE | 2021-11-17 12:18 | Pharmacy Report ---
Pharmacy Glycemic Short Note 2 - Date of Service November 17, 2021 - Glycemic Short BSG Results (Last 24 hours): 11/16/21 11/17/21 11/17/21 22:57 06:05 07:06 Glucose 221 H 269 H POC Glucose 280 H 11/17/21 12:04 Glucose POC Glucose 195 H OUTPATIENT ANTIDIABETIC REGIMEN: * Metformin 500 mg PO daily * HbA1c: 8.6% (11/17/21) ASSESSMENT: * GA is a 80 year old female who presented evening of 11/16/21 with left flank pain, subsequently found to have kidney stone * NPO today for cystoscopy with possible laser lithotripsy * Pharmacy consulted for glycemic management due to elevated BSGs this morning (280 mg/dL) * Will order conservative Lantus dose now in light of NPO status and will tighten Novolog parameters PLAN FOR INPATIENT GLYCEMIC CONTROL: * Hold outpatient oral diabetes medications * Basal insulin * Lantus 10 units SC x 1 * Reassess in AM * Bolus insulin * NovoLog per scale ACHS or Q6hrs while NPO * Goal Range: Low 120 mg/dL - High 150 mg/dL * Correction Factor: 25 mg/dL/unit * Nutritional / Prandial insulin per carb ratio of 1 unit per 9 grams CHO consumed PLAN FOR DISCHARGE: * tbd
[2021-11-17] MEDS ORDERED: HYDROCODONE/ACETAMOPHEN 5/325MG TAB PO ONE (12:28)
--- NOTE | 2021-11-17 13:48 | Electrocardiogram Report ---
Test Reason : Blood Pressure : / mmHG Vent. Rate : 104 BPM Atrial Rate : 104 BPM P-R Int : 176 ms QRS Dur : 074 ms QT Int : 376 ms P-R-T Axes : 038 -35 031 degrees QTc Int : 494 ms Poor data quality, interpretation may be adversely affected Sinus tachycardia Left axis deviation Low voltage QRS Abnormal ECG Confirmed by Randal Katz ([id number]) on 11/17/2021 1:47:58 PM Referred By: REFERRED SELF Confirmed By:James Katz
[2021-11-17] MEDS ORDERED: ePHEDrine sulfate 50 MG/ML SYR ONE (15:40)
[2021-11-17] MEDS ORDERED: ONDANSETRON INJ 2 MG/ML 2 ML VIAL ONE (15:40)
[2021-11-17] MEDS ORDERED: LIDOCAINE 2% 2 ML VIAL/AMP(20MG/ML) INFIL ONE (15:40)
[2021-11-17] MEDS ORDERED: PHENYLEPHRINE 100MCG/ML 5ML SYR ONE (15:40)
[2021-11-17] MEDS ORDERED: fentaNYL citrate 100 MCG/2 ML VIAL ONE (15:40)
[2021-11-17] MEDS ORDERED: PROPOFOL IV EMULSION 10 MG/ML 20 ML VIAL IV ONE (15:40)
[2021-11-17] MEDS ORDERED: ePHEDrine sulfate 50 MG/ML AMP IV PRN (15:52)
[2021-11-17] MEDS ORDERED: ATROPINE SULFATE 0.1 MG/ML 10ML SYR IV PRN (15:52)
[2021-11-17] MEDS ORDERED: fentaNYL citrate 100 MCG/2 ML VIAL IV PRN (15:52)
--- NOTE | 2021-11-17 15:52 | Anesthesiology Consultation ---
Date of Service November 17, 2021 Assessment & Plan (1) Encounter for pre-operative examination: Chart Review Chart Review: Acceptable Risk for Surgery and Patient NOT seen in Pre Admission Testing Consults Requested none History Surgery Operation Date: 11/17/21 13:30 Proposed Procedures p Cystoscopy, Left Ureteroscopy, Possible Laser Litho Stone Treatment, Left Stent Insertion - Ruiz Brink, DO Height/Weight Height: 5 ft 5 in Weight: 105.7 kg Allergies Allergy/AdvReac Type Severity Reaction Status Date / Time Estrogens AdvReac Intermediate MIGRAINES Verified 11/16/21 23:15 medroxyprogesterone AdvReac Intermediate MIGRAINES Verified 11/16/21 23:15 Medications Home Medications Medication Instructions Recorded Confirmed Last Taken aspirin 81 mg tablet,delayed 81 mg PO DAILY 11/16/21 11/16/21 11/16/21 release calcium carbonate 600 mg-vitamin 2 tab PO DAILY 11/16/21 11/16/21 11/16/21 D3 5 mcg (200 unit) tablet (Calcium 600 + D(3)) calcium polycarbophil 625 mg 1,250 mg PO DAILY 11/16/21 11/16/21 11/16/21 tablet (FiberCon) citalopram 10 mg tablet (Celexa) 10 mg PO DAILY 11/16/21 11/16/21 11/16/21 cyanocobalamin (vitamin B-12) 500 500 mcg PO DAILY 11/16/21 11/16/21 11/16/21 mcg tablet (Vitamin B-12) hydrochlorothiazide 25 mg tablet 12.5 mg PO DAILY 11/16/21 11/16/21 11/16/21 losartan 100 mg tablet 100 mg PO DAILY 11/16/21 11/16/21 11/16/21 metformin 500 mg tablet,extended 500 mg PO DAILY 11/16/21 11/16/21 11/16/21 release 24 hr multivitamin 1 tab PO DAILY 11/16/21 11/16/21 11/16/21 simvastatin 10 mg tablet 10 mg PO DAILY 11/16/21 11/16/21 11/16/21 Active Medications Generic Name Dose Route Start Last Admin Trade Name Freq PRN Reason Stop Dose Admin Acetaminophen 650 mg 11/17/21 03:15 11/17/21 12:13 Acetaminophen 325 Mg Tab PO 12/17/21 03:14 650 mg Q4H PRN Administration pain/fever Amlodipine Besylate 5 mg 11/17/21 09:00 11/17/21 11:10 Amlodipine Besylate 5 Mg Tab PO 12/17/21 08:59 5 mg QAM ARLEEN Administration Aspirin 81 mg 11/17/21 09:00 11/17/21 08:27 Aspirin 81 Mg Ectab PO 12/17/21 08:59 81 mg DAILY ARLEEN Administration Calcium Polycarbophil 1,250 mg 11/17/21 09:00 11/17/21 08:26 Calcium Polycarbophil 625mg Tab PO 12/17/21 08:59 1,250 mg DAILY ARLEEN Administration Citalopram Hydrobromide 10 mg 11/17/21 09:00 11/17/21 08:25 Citalopram 20 Mg Tab PO 12/17/21 08:59 10 mg DAILY ARLEEN Administration Cyanocobalamin 500 mcg 11/17/21 09:00 11/17/21 08:27 Cyanocobalamin (B-12) 500 Mcg Tablet PO 12/17/21 08:59 500 mcg DAILY ARLEEN Administration Hydromorphone HCl 0.5 mg 11/17/21 03:15 11/17/21 14:29 Hydromorphone Inj 0.5 Mg/0.5 Ml Syr IV 12/01/21 03:14 0.5 mg Q3H PRN Administration Pain Sodium Chloride 1,000 mls @ 125 mls/hr 11/17/21 03:15 11/17/21 12:15 Nss 1000ml IV 12/17/21 03:14 125 mls/hr .Q8H ARLEEN Administration Insulin Aspart 0 units 11/17/21 03:30 11/17/21 12:08 Insulin Aspart Per Unit SC 12/17/21 03:29 2 units Q6 ARLEEN Administration Magnesium Oxide 400 mg 11/17/21 09:00 11/17/21 11:10 Magnesium Oxide 400 Mg Tab PO 12/17/21 08:59 400 mg BID ARLEEN Administration Multivitamins 1 tab 11/17/21 09:00 11/17/21 08:24 Multivitamin Tab PO 12/17/21 08:59 1 tab DAILY ARLEEN Administration Multivitamins/Minerals 2 tab 11/17/21 09:00 11/17/21 08:27 Calcium 600mg + Vit D 400 Iu Tab PO 03/23/22 08:59 2 tab DAILY ARLEEN Administration Ondansetron HCl 4 mg 11/17/21 03:15 11/17/21 14:37 Ondansetron Inj 2 Mg/Ml 2 Ml Vial IV 12/17/21 03:14 4 mg Q6H PRN Administration Nausea Simvastatin 10 mg 11/17/21 09:00 11/17/21 08:24 Simvastatin 10 Mg Tab PO 12/17/21 08:59 10 mg DAILY ARLEEN Administration Past Medical History Medical History Breast cancer Diabetes Past Surgical History Surgical History H/O mastectomy Social History Smoking Status: Never smoker Do You Dip or Chew Tobacco: No Hx Alcohol Use: No Hx Substance Use: No Physical Exam Vital Signs Last Vital Signs Temp 37 C 11/17/21 07:20 Pulse 114 H 11/17/21 07:20 Resp 18 11/17/21 07:20 BP 149/83 H 11/17/21 07:20 Pulse Ox 94 11/17/21 07:20 Testing Laboratory Results 11/17/21 07:06 11/17/21 07:06 Hemoglobin A1c 8.6 % (4.5-5.6) H 11/17/21 07:06 Urine Color Yellow 11/17/21 00:40 Urine Appearance Cloudy (Clear) A 11/17/21 00:40 Urine pH 6.0 (4.5-7.5) 11/17/21 00:40 Ur Specific [place] 1.022 (1.000-1.030) 11/17/21 00:40 Urine Protein 2+ (Negative) H 11/17/21 00:40 Urine Glucose (UA) Negative (Negative) 11/17/21 00:40 Urine Ketones Trace (Negative) H 11/17/21 00:40 Urine Nitrite Negative (Negative) 11/17/21 00:40 Ur Leukocyte Esterase Trace (Negative) H 11/17/21 00:40 Urine WBC (Auto) 5-10 /hpf (0-5) H 11/17/21 00:40 Urine RBC (Auto) 10-30 /hpf (0-4) H 11/17/21 00:40 U Hyaline Cast (Auto) 1-5 /lpf (0-5) 11/17/21 00:40 U Epithel Cells (Auto) >30 /lpf (0-5) H 11/17/21 00:40 Urine Bacteria (Auto) 1+ (Negative) H 11/17/21 00:40 11/17/21 11/17/21 12:04 06:05 POC Glucose 195 H 280 H Electrocardiogram Date: 11/17/21 Findings: + ST @ (104) Sinus tachycardia Left axis deviation Low voltage QRS Abnormal ECG Confirmed by Randal Katz ([id number]) on 11/17/2021 1:47:58 PM Chest X-Ray Date: 11/17/21 Cardiomegaly without acute process.
[2021-11-17] MEDS ORDERED: ceFAZolin 2000MG 2,000 MG/15 ML SYR IV ONE (16:06)
[2021-11-17] MEDS ORDERED: ceFAZolin 2,000 MG/15 ML IV PUSH IV ONE (16:09)
[2021-11-17] MEDS ORDERED: DIATRIZOATE MEGLUMINE 30% 100ML VIAL INSTIL ONE (16:36)
--- NOTE | 2021-11-17 17:16 | Fluoroscopy Report ---
FL retrograde includes kub CLINICAL HISTORY: Left ureteral stent placement. COMPARISON STUDY: None. FLUOROSCOPY TIME: 18 seconds. FINDINGS: 2 fluoroscopic spot images of the abdomen demonstrate placement of a left ureteral stent wh ich appears in good position. IMPRESSION: Fluoroscopic assistance provided for left ureteral stent placement which appears in good position. ACT 112: Negative or not required by law. Electronically signed by: Gus Saldivar M.D. 11/17/2021 5:14 PM
--- NOTE | 2021-11-17 17:20 | Anesthesiology Progress Note ---
Date of Service November 17, 2021 Anesthesia Post Procedure Vital Signs Vital Signs: Temp Pulse Pulse Pulse Resp BP BP 11/17/21 17:10 104 H 17 161/72 H 11/17/21 17:00 98 H 14 161/77 H 11/17/21 16:53 36.3 C L 93 H 13 127/68 11/17/21 15:53 37.2 C 109 H 20 114/69 11/17/21 07:20 37 C 114 H 18 149/83 H 11/17/21 03:52 37.0 C 99 H 22 178/89 H 11/17/21 03:15 37.0 C 99 H 22 178/89 H 11/17/21 02:30 107 H 18 160/71 H 11/17/21 01:57 106 H 18 149/120 H 11/16/21 23:57 85 94 H 18 167/117 H 11/16/21 22:31 36.9 C 90 16 223/114 H Pulse Ox 11/17/21 17:10 98 11/17/21 17:00 96 11/17/21 16:53 96 11/17/21 15:53 94 11/17/21 07:20 94 11/17/21 03:52 93 11/17/21 03:15 93 11/17/21 02:30 93 11/17/21 01:57 91 11/16/21 23:57 92 11/16/21 22:31 95 Pain Intensity Left Flank: Pain Intensity: 2 Transfer of Care Handoff Completed per policy Notes Mental Status: alert / awake / arousable Patient Amnestic to Procedure: Yes Nausea / Vomiting: adequately controlled Pain: adequately controlled Airway Patency, RR, SpO2: stable & adequate BP & HR: stable & adequate Hydration State: stable & adequate Anesthetic Complications: no major complications apparent and Pt Satisfied with anesthetic care
[2021-11-17] MEDS ORDERED: Nursing to Pharmacy Communication SCH (18:00)
--- NOTE | 2021-11-17 18:05 | Hospitalist Progress Note ---
Date of Service November 17, 2021 Assessment & Plan (1) Ureterolithiasis: Plan: ASSESSMENT AND PLAN: An 80-year-old female who presents with left flank pain and found to have kidney stone. 1. Left UVJ stone Acute Renal Failure Pyelonephritis - CT abd: A 5 mm left UVJ junction with mild hydronephrosis, possible pyelonephritis, urinary tract infection - Blood culture: pending Urine culture: pending - IV Ceftri Day 1 Ofirmev, PRN Dilauid IV fluids - Urologist consulted 2. History of hypertension: HOLD losartan and hydrochlorothiazide for RENE Amlodipine 5mg po ordered PRN Hydralazine 3. Hyperlipidemia: Continue statin. 4. Diabetes: Hold metformin. Place on insulin sliding scale. Currently n.p.o. 5. Depression: Currently on Celexa. 6. History of breast cancer: Status post bilateral mastectomy. 7. Acute kidney injury on chronic kidney disease stage III: Crea 0.9 to 1.3 IV fluids hold Losartan, HCTZ 8. Deep venous thrombosis prophylaxis: Sequential compression devices for now. Disposition will need PT/OT plan of care discussed with patient and her daughter in detail and at length all questions answered they are understanding, agreeable, comfortable with the plan of care Admission and Anticipated Discharge Date Admission Date: November 17, 2021 Subjective ff up for L UVJ stone, acute kidney injury, pyelonephritis, etc seen resting in bed, patient's daughter at bedside visiting patient not in distress, mild discomfort (+) no chest pain, dyspnea, palpitations, dizziness no nausea/vomiting no other symptoms Review of Systems Review of Systems: all noted and negative except for above Physical Exam Physical Exam: General- oriented x 3, not in distress, speaks in sentences wi th no effort or accessory muscle use Head- atraumatic Eyes- PERRL, EOMI, anicteric ENT- oropharynx clear Neck- supple, no JVD, no adenopathy, no thyromegaly; carotids +2/2, no bruits appreciated Lungs- clear to auscultation bilaterally, no rales/wheezes Heart- normal rate, regular rhythm; no murmur, no gallop, no rub appreciated Abdomen- normal bowel sounds, nondistended, soft, (+) L CVA tenderness Extremities- mild pretibial edema, no calf tenderness; peripheral pulses intact Neuro- alert, oriented x 3; CN 2-12 grossly intact; motor 5/5 bilaterally;sensation 100% on all extremities; no other gross focal neurologic deficits Skin- warm & dry Results & Data Results & Data ([facility]) Vital Signs (Past 12 Hours) Vital Signs Temp Pulse Pulse Resp BP Pulse Ox 11/17/21 17:20 36.7 C 106 H 15 139/79 94 11/17/21 17:10 104 H 17 161/72 H 98 11/17/21 17:00 98 H 14 161/77 H 96 11/17/21 16:53 36.3 C L 93 H 13 127/68 96 11/17/21 15:53 37.2 C 109 H 20 114/69 94 11/17/21 07:20 37 C 114 H 18 149/83 H 94 all noted and reviewed including below
[2021-11-17] MEDS ORDERED: oxyCODONE HCL IR 5 MG TAB (IMMEDIATE RELEASE) PO PRN (18:06)
[2021-11-17] MEDS ORDERED: hydrALAZINE HCL 20 MG/ML VIAL IV PRN (18:09)
[2021-11-17] MEDS ORDERED: HYDROmorphone INJ 0.5 MG/0.5 ML SYR IV PRN (18:11)
[2021-11-17] MEDS: ACETAMINOPHEN 1,000 MG/100 ML VIAL IV SCH (19:00)
[2021-11-17] MEDS ORDERED: cefTRIAXone SODIUM 2,000 MG in DEXTROSE 5% 50 ML IV SCH (20:00)
[2021-11-18] MEDS: ACETAMINOPHEN 1,000 MG/100 ML VIAL IV SCH ×2 (02:24→10:52)
[2021-11-18] MEDS: SODIUM CHLORIDE 0.9% 1000ML 1,000 ML IV SCH (03:33)
--- NOTE | 2021-11-18 08:18 | Operative Report ---
PG Post Operative Report Pre & Post Diagnosis Operation Date: 11/17/21 13:30 Pre-Op Diagnosis: Left Renal Stone Post-Op Diagnosis: Left Renal Stone I identified the patient and participated in the time-out.: Yes Procedure Operation Date: 11/17/21 13:30 Actual Procedures p Cystoscopy, Left Ureteroscopy, Ureteral Dilation, Retrograde Pyelogram, Stone Basket Extraction, and stent placement (Left) - Ruiz Brink DO Surgeon Ruiz Brink, II, DO Agronomy Location Manager None Estimated Blood Loss 1 Findings Consistent with Post-Op Diagnosis Stricture dilated and ureteral stone removed. Specimens Stone Fragments Drains 6 Fr Multilength Anesthesia Type General Complications none Disposition Disposition: Recovery Room Indications Patient with bothersome stones. Risks and benefits discussed at length. Description of Procedure Patient was consented and brought back to the operating room. Patient was placed under anesthesia in the supine position and moved to the dorsal lithotomy position. Patient was prepped and draped in the regular sterile fashion. A time out was completed. A 30degree Cystoscope was placed into the bladder and the entire bladder was examined. The UO's were identified. The UO was cannulized with a catheter and a retrograde pyelogram was completed. A wire was then placed. The Rigid ureteroscope was taken into the ureter. The stone was identified proximal to a significant stricture of the UO. The UO was dilated and the scope advanced. The stone was then grasped and removed and sent for analysis. The entire area was once again examined. No residual large fragments or areas of concern were noted. The scope was slowly removed with the wire left in place. Contrast was placed through the scope for a pyelogram to assist in stent placement. The entire ureter was examined as the scope was slowly removed. No obstructions or other areas of concern were noted. With the wire in place, a 6 Fr Double J stent was placed. It was confirmed with fluoroscopy. With the stent in place, the bladder was emptied. The scope was removed. The patient was cleaned, aroused from anesthesia, and transferred to the pacu in stable condition having tolerated the procedure well with no complications. I was present and participated in all aspects of the procedure. The patient will be monitored in the PACU until transferred. Will transfer back to floor. Monitor overnight and likely home when stable. Will need repeat imaging in 1-2 weeks with likely stent removal in office. I attest to the content of the Intraoperative Record and any orders documented therein. Any exceptions are noted below.
[2021-11-18] MEDS: CYANOCOBALAMIN (B-12) 500 MCG TABLET PO SCH (08:45)
[2021-11-18] MEDS: MAGNESIUM OXIDE 400 MG TAB PO SCH (08:45)
[2021-11-18] MEDS: MULTIVITAMIN TAB PO SCH (08:45)
[2021-11-18] MEDS: SIMVASTATIN 10 MG TAB PO SCH (08:45)
[2021-11-18] MEDS: CITALOPRAM 20 MG TAB PO SCH (08:45)
[2021-11-18] MEDS: CALCIUM 600MG + VIT D 400 IU TAB PO SCH (08:47)
[2021-11-18] MEDS: CALCIUM POLYCARBOPHIL 625MG TAB PO SCH (08:47)
[2021-11-18] MEDS: amLODIPine BESYLATE 5 MG TAB PO SCH (08:47)
[2021-11-18] MEDS: ASPIRIN 81 MG ECTAB PO SCH (08:47)
[2021-11-18] MEDS: INSULIN ASPART PER UNIT SC SCH ×2 (09:11→12:52)
[2021-11-18 09:29] LABS: Basophils # (auto) 0.02 K/uL (0-0.2); Basophils % (auto) 0.2 %; Eosinophils # (auto) 0.26 K/uL (0-0.5); Eosinophils % (auto) 2.3 %; Hematocrit (blood only) 38.2 % (37-47); Hemoglobin 12.6 g/dL (12.0-16.0); Immature Granulocytes # (auto) 0.03 K/uL (0.00-0.02); Immature Granulocytes % (auto) 0.3 %; Lymphocytes # (auto) 1.96 K/uL (1.2-3.4); Lymphocytes % (auto) 17.4 %; Mean Corpuscular Volume 93.9 fL (80-100); Mean Platelet Volume 10.7 fL (7.4-10.4); Monocytes % (auto) 10.6 %; Neutrophils # (auto) 7.81 K/uL (1.4-6.5); Neutrophils % (auto) 69.2 %; Platelet Count 215 K/uL (130-400); RDW Coefficient of Variation 12.8 % (11.5-14.5); RDW Standard Deviation 43.8 fL (36.4-46.3); Red Blood Count 4.07 M/uL (4.2-5.4); White Blood Count 11.28 K/uL (4.8-10.8)
[2021-11-18 10:49] LABS: BUN Creatinine Ratio 16.1 (10-20); Calcium 8.5 mg/dl (8.5-10.1); Creatinine Clr Calc Pharmacy 62.3 ml/min; Est GFR (African American) 72.9 ml/min; Est GFR (Non-African American) 62.9 ml/min; Potassium 3.5 mmol/L (3.5-5.1)
--- NOTE | 2021-11-18 11:42 | Urology Progress Note ---
Date of Service November 18, 2021 Assessment & Plan (1) Ureterolithiasis: Plan: - Pt POD#1 s/p Cystoscopy, Left Ureteroscopy, Ureteral Dilation, Retrograde Pyelogram, Stone Basket Extraction, and left stent placement - Doing well, progressing as expected - Afebrile, lab work reviewed - creatinine improved to 0.87, WBC 11.28 - Urine culture returned with more than three types of organisms present, all high counts mixed probable skin apple - BCx pending - Tolerating left ureteral stent without bother - Okay to d/c from perspective when medically stable - Recommend d/c with short course of PO antibiotics, Tamsulosin, prn Pyridium and prn pain medication for stent management - Expected clinical course reviewed, all questions answered - Will arrange outpatient follow-up with our service for stent removal Thank you for allowing us to participate in the acute care of Ms. Junior. Please reconsult us with additional questions, concerns or changes in patient status. Admission and Anticipated Discharge Date Admission Date: November 17, 2021 Subjective Pt seen and examined at bedside this AM. Awake, alert and sitting up in bedside chair. No acute issues overnight. Subjectively feeling well. Denies flank or abdominal pain. Voiding spontaneously, no dysuria, mild hematuria post procedure which is clearing. Tolerating PO diet, no nausea or vomiting. No fever or chills. Offers no additional complaints. Patient feels ready for d/c today. Review of Systems Constitutional: as per Subjective / HPI Gastrointestinal: as per Subjective / HPI Genitourinary: as per Subjective / HPI Physical Exam Constitutional: well developed, well nourished and + obese; no acute distress and not ill appearing Respiratory: normal respiratory effort and able to speak in complete sentences; no respiratory distress and no labored breathing Gastrointestinal (Abdomen): Inspection/Auscultation: abdomen normal to inspection; abdomen not distended Neurologic: moves all extremities and awake Psychiatric: Orientation: alert, oriented x 3 and cooperative Results & Data ([facility]) Vital Signs (Past 12 Hours) Vital Signs Temp Pulse Resp BP Pulse Ox 11/18/21 07:39 36.5 C 86 16 125/79 92 11/18/21 02:31 37.1 C 96 H 17 122/73 93 PG Care Time/CCT Total # of Minutes Spent Total Time Spent with Patient: Total time spent is greater than 50% in coordination of care (as documented) at patient's floor/unit and/or counseling patient: Coding Level of Care Code 58592 Subseq Hosp Care Lvl 2 Diagnoses Ureterolithiasis N20.1
--- NOTE | 2021-11-18 12:13 | Pharmacy Report ---
Pharmacy Glycemic Short Note 2 - Date of Service November 18, 2021 - Glycemic Short BSG Results (Last 24 hours): 11/17/21 11/17/21 11/17/21 12:04 15:48 16:55 Glucose POC Glucose 195 H 205 H 204 H 11/17/21 11/17/21 11/18/21 18:12 20:40 07:59 Glucose POC Glucose 193 H 151 H 145 H 11/18/21 11/18/21 09:09 11:58 Glucose 167 H POC Glucose 135 H OUTPATIENT ANTIDIABETIC REGIMEN: * Metformin 500 mg PO daily * HbA1c: 8.6% (11/17/21) ASSESSMENT: 11/18 * BSGs trended down throughout the day yesterday, 280, 195, 193, and 151 mg/dL * Received 20 units of insulin (10 units of basal and 10 units of prandial/correctional bolus) * No longer NPO, advanced to T2DM diet * Do not anticipate change to insulin regimen today * RENE resolved (SCr 1.55 -> 0.87 mg/dL) 11/17 * SC is a 80 year old female who presented evening of 11/16/21 with left flank pain, subsequently found to have kidney stone * NPO today for cystoscopy with possible laser lithotripsy * Pharmacy consulted for glycemic management due to elevated BSGs this morning (280 mg/dL) * Will order conservative Lantus dose now in light of NPO status and will tighten Novolog parameters PLAN FOR INPATIENT GLYCEMIC CONTROL: * Hold outpatient oral diabetes medications * Basal insulin * Lantus 10 units SC daily * Bolus insulin * NovoLog per scale ACHS or Q6hrs while NPO * Goal Range: Low 120 mg/dL - High 150 mg/dL * Correction Factor: 25 mg/dL/unit * Nutritional / Prandial insulin per carb ratio of 1 unit per 9 grams CHO consumed PLAN FOR DISCHARGE: * HbA1c is elevated at 8.6%, reasonable goal would be less than 8% based on age * eGFR > 60 mL/min/1.73 m2 * Reasonable to increase metformin to 500 mg PO BIDM at time of discharge, with further dose increases at discretion of outpatient provider
[2021-11-18] MEDS ORDERED: INSULIN GLARGINE SOLOSTAR 100 UNITS/ML 3 ML PEN SC ONE (12:15)
--- NOTE | 2021-11-18 17:29 | Discharge Summary ---
Date of Service November 18, 2021 Admission HPI Per Admitting Provider This is an 80-year-old female with past medical history significant for type 2 diabetes, chronic kidney disease stage III, hyperlipidemia, chronic rhinitis, hypertension, GERD, history of sensorineural hearing loss, presents with left flank pain and found to have kidney stone. The patient says the pain started today in the evening. With pain medications,pain is improved. No blood in the urine. No fever, no chills, no diarrhea or constipation. Has some nausea, no vomiting, no chest pain, no shortness of breath, no cough, no headache, no blurred visions, no earache, no runny nose, no sore throat. Appetite is okay. Currently, resting comfortably and hemodynamically stable Admission Exam Per Admitting Provider GENERAL: The patient is of moderate build, not in acute distress. VITAL SIGNS: Temperature 36.8, pulse 112, respiratory rate 18, blood pressure 160/71, oxygen 93% on room air. HEENT: Pupils equal, round and reactive to light. Oral mucosa moist. NECK: No JVD or neck masses. CARDIOVASCULAR: S1 and S2 heard. Regular rate and rhythm. No murmur, no gallop. RESPIRATORY SYSTEM: Normal AP diameter. No accessory muscle use. No wheezing, no crackles. ABDOMEN: Soft, bowel sounds present, nontender. No CVA tenderness. No distention, no guarding, no rigidity. CENTRAL NERVOUS SYSTEM: Cranial nerves II-XII grossly intact, nonfocal. EXTREMITIES: No edema, no erythema. Principal Diagnosis Left UVJ renal calculi with hydronephrosis Discharge Exam Constitutional WD/WN, vitals as above Respiratory normal respiratory effort, lungs clear to auscultation Cardiovascular Rate/Rhythm: regular rate and regular rhythm Vessels: normal peripheral pulses Extremities: no edema Gastrointestinal (Abdomen) Percussion/Palpation: abdomen soft; abdomen nontender Skin no rashes, warm and dry Neurologic no focal motor deficits Psychiatric A+Ox3, euthymic affect Genitourinary no CVA tenderness Discharge Data Allergies Allergy/AdvReac Type Severity Reaction Status Date / Time Estrogens AdvReac Intermediate MIGRAINES Verified 11/16/21 23:15 medroxyprogesterone AdvReac Intermediate MIGRAINES Verified 11/16/21 23:15 Consultations 11/17/21 08:00 Consult Urology Routine Procedures Performed Operation Date: 11/17/21 13:30 Actual Procedures p Left Stent Insertion, (Left) - Ruiz Brink DO s Cystoscopy, Left Ureteroscopy, Ureteral Dilation, Retrograde Pyelogram, Stone Basket Extraction(Left) - Ruiz Brink DO Ordered Studies Laboratory Results WBC 11.28 K/uL (4.8-10.8) H 11/18/21 09:09 RBC 4.07 M/uL (4.2-5.4) L 11/18/21 09:09 Hgb 12.6 g/dL (12.0-16.0) 11/18/21 09:09 Hct 38.2 % (37-47) 11/18/21 09:09 MCV 93.9 fL (80-100) 11/18/21 09:09 MCH 31.0 pg (25-34) 11/18/21 09:09 MCHC 33.0 g/dL (32-36) 11/18/21 09:09 RDW Std Deviation 43.8 fL (36.4-46.3) 11/18/21 09:09 RDW Coeff of Chacho 12.8 % (11.5-14.5) 11/18/21 09:09 Plt Count 215 K/uL (130-400) 11/18/21 09:09 MPV 10.7 fL (7.4-10.4) H 11/18/21 09:09 Immature Gran % (Auto) 0.3 % 11/18/21 09:09 Neut % (Auto) 69.2 % 11/18/21 09:09 Lymph % (Auto) 17.4 % 11/18/21 09:09 Swift % (Auto) 10.6 % 11/18/21 09:09 Eos % (Auto) 2.3 % 11/18/21 09:09 Baso % (Auto) 0.2 % 11/18/21 09:09 Neut # (Auto) 7.81 K/uL (1.4-6.5) H 11/18/21 09:09 Lymph # (Auto) 1.96 K/uL (1.2-3.4) 11/18/21 09:09 Swift # (Auto) 1.20 K/uL (0.11-0.59) H 11/18/21 09:09 Eos # (Auto) 0.26 K/uL (0-0.5) 11/18/21 09:09 Baso # (Auto) 0.02 K/uL (0-0.2) 11/18/21 09:09 Immature Gran # (Auto) 0.03 K/uL (0.00-0.02) H 11/18/21 09:09 Sodium 136 mmol/L (136-145) 11/18/21 09:09 Potassium 3.5 mmol/L (3.5-5.1) 11/18/21 09:09 Chloride 105 mmol/L (98-107) 11/18/21 09:09 Carbon Dioxide 27 mmol/L (21-32) 11/18/21 09:09 Anion Gap 4 (3-11) 11/18/21 09:09 BUN 14 mg/dl (6-23) 11/18/21 09:09 Creatinine 0.87 mg/dl (0.6-1.2) D 11/18/21 09:09 Est Cr Clr Drug Dosing 62.3 ml/min 11/18/21 09:09 Est GFR ( Amer) 72.9 ml/min 11/18/21 09:09 Est GFR (Non-Af Amer) 62.9 ml/min 11/18/21 09:09 BUN/Creatinine Ratio 16.1 (10-20) 11/18/21 09:09 Glucose 167 mg/dl (70-99(Fasting)) H 11/18/21 09:09 POC Glucose 135 mg/dl (70-99) H 11/18/21 11:58 Estimat Average Glucose 200 mg/dl 11/17/21 07:06 Hemoglobin A1c 8.6 % (4.5-5.6) H 11/17/21 07:06 Calcium 8.5 mg/dl (8.5-10.1) 11/18/21 09:09 Magnesium 1.4 mg/dl (1.7-2.4) L 11/17/21 07:06 Total Bilirubin 0.5 mg/dl (0.2-1.0) 11/16/21 22:57 AST 19 U/L (13-39) 11/16/21 22:57 ALT 27 U/L (7-52) 11/16/21 22:57 Alkaline Phosphatase 76 U/L (34-104) 11/16/21 22:57 Total Protein 7.0 gm/dl (6.0-8.3) 11/16/21 22:57 Albumin 4.2 gm/dl (3.4-5.0) 11/16/21 22:57 Globulin 2.8 gm/dl (2.5-4.0) 11/16/21 22:57 Albumin/Globulin Ratio 1.5 (0.9-2) 11/16/21 22:57 Lipase 27 U/L (11-82) 11/16/21 22:57 Urine Color Yellow 11/17/21 00:40 Urine Appearance Cloudy (Clear) A 11/17/21 00:40 Urine pH 6.0 (4.5-7.5) 11/17/21 00:40 Ur Specific [place] 1.022 (1.000-1.030) 11/17/21 00:40 Urine Protein 2+ (Negative) H 11/17/21 00:40 Urine Glucose (UA) Negative (Negative) 11/17/21 00:40 Urine Ketones Trace (Negative) H 11/17/21 00:40 Urine Blood 2+ (Negative) H 11/17/21 00:40 Urine Nitrite Negative (Negative) 11/17/21 00:40 Urine Bilirubin Negative (Negative) 11/17/21 00:40 Urine Urobilinogen Negative (Negative) 11/17/21 00:40 Ur Leukocyte Esterase Trace (Negative) H 11/17/21 00:40 Urine WBC (Auto) 5-10 /hpf (0-5) H 11/17/21 00:40 Urine RBC (Auto) 10-30 /hpf (0-4) H 11/17/21 00:40 U Hyaline Cast (Auto) 1-5 /lpf (0-5) 11/17/21 00:40 U Epithel Cells (Auto) >30 /lpf (0-5) H 11/17/21 00:40 Urine Bacteria (Auto) 1+ (Negative) H 11/17/21 00:40 Urine Crystals Not Reportable 11/17/21 00:40 Calcium Oxalate Crystal Present (None Prsent) A 11/17/21 00:40 SARS-CoV-2, RNA, NAAT NEGATIVE (NEGATIVE) 11/17/21 01:21 Impressions Abdomen/Pelvis CT 11/16/21 22:47 CT SCAN OF THE ABDOMEN AND PELVIS WITH IV CONTRAST CLINICAL HISTORY: Left-sided abdominal/flank pain. COMPARISON STUDY: No priors. TECHNIQUE: Following the IV administration of 95 cc of Optiray 320, CT scan of the abdomen and pelvis is performed from the lung bases to the proximal femora. Images are reviewed in the axial, sagittal, and coronal planes. IV contrast was administered without complication. A dose lowering technique was utilized adhering to the principles of ALARA. There is streak artifact from the right arm which could not be elevated above the abdomen. CT DOSE: 1469.43 mGy.cm FINDINGS: Lung bases: The heart is normal in size and without pericardial effusion. The lung bases are clear routine bibasilar scarring/atelectasis. A tiny hiatal hernia is noted. Liver: The contrast-enhanced liver is enlarged, measuring 20.7 cm in length. The liver demonstrates diffusely diminished attenuation consistent with hepatic steatosis. There is no intrahepatic biliary ductal dilatation. The hepatic veins and portal veins are patent. Gallbladder: Surgically absent noting clips in the gallbladder fossa. Spleen: Normal in size and attenuation. Pancreas: Unremarkable. Adrenal glands: Unremarkable. Kidneys: The contrast enhanced kidneys demonstrate cortical atrophy. There is an 8 mm obstructing calculus protruding from the left vesicoureteral junction seen on image #413. This causes moderate left hydroureteronephrosis. There is associated left-sided perinephric and perinephric stranding/fluid. There are at least 5 additional nonobstructing left renal calculi and at least 3 nonobstructing right renal calculi which measure up to 5 mm. Enhancement of the left kidney is heterogeneous. Abdominal vasculature: The abdominal aorta is normal in course and caliber noting moderate atherosclerotic calcification. Bowel: There is no bowel obstruction. Mild fecal retention is noted throughout the colon. There are scattered colonic diverticula without CT evidence of acute diverticulitis. The appendix is well-visualized and normal. Peritoneum: There is no intraperitoneal free air or abdominal ascites. A large fat-containing supraumbilical hernia seen on image #168. Lymphadenopathy: None. Pelvic viscera: The bladder is normal as visualized. The endometrium appears thickened for age measuring up to 18 mm. No adnexal lesion is seen. Skeletal structures: The skeletal structures are osteopenic. There is mild lumbosacral spondylosis. No lytic or blastic lesions are seen. Sclerotic change is seen in the pubic symphysis. IMPRESSION: 1. There is an 8 mm obstructing calculus protruding from the left vesicoureteral junction. This causes moderate left hydroureteronephrosis. 2. Additional nonobstructing calculi are seen bilaterally. 3. Hepatomegaly and hepatic steatosis. 4. The endometrium is thickened for age measuring up to 1.8 cm. This is not well assessed by CT and nonemergent follow-up with gynecology and pelvic ultrasound is recommended for further assessment. 5. Additional findings as above. ACT 112: Positive. There are findings on this exam that require communication between the performing entity and the patient following Patient Test Result Information Act ([place] Act 112) guidelines. Electronically signed by: Angelito Rocha M.D. 11/17/2021 8:22 AM Retrograde Pyelogram 11/17/21 00:00 FL retrograde includes kub CLINICAL HISTORY: Left ureteral stent placement. COMPARISON STUDY: None. FLUOROSCOPY TIME: 18 seconds. FINDINGS: 2 fluoroscopic spot images of the abdomen demonstrate placement of a left ureteral stent which appears in good position. IMPRESSION: Fluoroscopic assistance provided for left ureteral stent placement which appears in good position. ACT 112: Negative or not required by law. Electronically signed by: Gus Saldivar M.D. 11/17/2021 5:14 PM KUB X-Ray 11/17/21 08:23 KUB CLINICAL HISTORY: L UVJ stone COMPARISON STUDY: CT of the abdomen and pelvis November 17, 2021 at 12:09 AM. FINDINGS: Moderate left hydroureteronephrosis is again noted. Although partially obscured on this exam by contrast, a suspected left ureterovesical junction calculus is noted. This measures approximately 6 mm. Several calculi within lower pole the right kidney are noted. Bowel gas pattern is normal. There are cholecystectomy clips. IMPRESSION: 1. No significant change in moderate left hydroureteronephrosis. 6 mm left ureterovesical junction calculus, partially obscured by contrast. 2. Right-sided nephrolithiasis. ACT 112: Negative or not required by law. Electronically signed by: Narendra Dyson M.D. 11/17/2021 10:18 AM Chest X-Ray 11/17/21 11:18 XR chest 1V portable HISTORY: 80 years-old Female Pre-op preoperative exam. No acute chest comp laints COMPARISON: KUB and CT abdomen and pelvis studies of same day TECHNIQUE: Portable AP view of the chest FINDINGS: Cardiac silhouette is enlarged. Mild right hemidiaphragmatic elevation. No pneumothorax, pleural effusion, airspace consolidation or overt pulmonary edema. Degenerative changes of the shoulders and spine. Surgical clips of the right axilla. IMPRESSION: Cardiomegaly without acute process. ACT 112: Negative or not required by law. The above report was generated using voice recognition software. It may contain grammatical, syntax or spelling errors. Electronically signed by: Juan David Riley M.D. 11/17/2021 11:54 AM Hospital Course (1) Ureterolithiasis: This is an 80-year-old female with past medical history significant for type 2 diabetes, chronic kidney disease stage III, hyperlipidemia, chronic rhinitis, hypertension, GERD, history of sensorineural hearing loss, presents wi th left flank pain and found to have kidney stone Left UVJ stone with pyelonephritis Possible UTI/pyelonephritis CT abd: A 5 mm left UVJ junction with mild hydronephrosis, possible pyelonephritis, POD#1 s/p Cystoscopy, Left Ureteroscopy, Ureteral Dilation, Retrograde Pyelogram, Stone Basket Extraction, and left stent placement by Dr. Brink Patient reports pain is resolved, remains afebrile. Creatinine returned to baseline. Received IV ceftriaxone while admitted --> will discharge on a 10-day course of cefdinir given concern for possible pyelonephritis Continue Flomax, as needed Pyridium Patient to follow-up with urology as an outpatient -office will call to arrange appointment RENE Creatinine 1.5 on 11/16/2021 --> improved to 0.87 today Likely postobstructive uropathy due to renal calculi HTN Losartan and HCTZ held due to RENE, resume at discharge Received amlodipine while admitted HLD Continue statin DM type II Oral agents held and received NovoLog per protocol while hospitalized, resume Metformin at discharge Hgb A1c 8.6 --> PCP to follow Depression Continue citalopram History of breast cancer s/p bilateral mastectomy Attending Addendum: care coordinated with APOLINAR Perea please refer to her notes for full details, I agree with her notes patient seen and examined, records reviewed by myself as well on exam, patient seen resting in bed, comfortable minimal L lower back discomfort no problems voiding no fever/chills states she is ready for discharge today no other symptoms VS noted and reviewed oriented x 3, not in distress, speaks in sentences with no effort nor accessory muscle use normal rate, regular rhythm, no murmurs clear breath sounds bilaterally non distended, soft, non tender no bipedal edema, erythema, warmth no neuro deficits WBC 11 Hg 12.6 Crea 0.87 ASSESSMENT AND PLAN LEFT UVJ STONE, PYELONEPHRITIS s/p cystoscopy, stone removal, stent placement renal function back to baseline afebrile d/c home today on PO Cefdinir HTN resume Losartan, HCTZ tomorrow DM 2 resume Metformin tomorrow other diagnoses and plan of care as per APOLINAR Mcnally MD Total Time Total Time Spent Total Time Spent (In Minutes): 35 Discharge Plan Discharge Items Patient Disposition: Home - Self-Care Reason For Visit: FLANK PAIN Discharge Diagnosis: Kidney Stone with UTI Condition on Discharge: Good Activity: Resume your previous activity Activity Comment: as tolerated Non-emergency contact: Primary Care Provider and Urologist Call non-emergency contact if: you have any medication questions, your symptoms worsen, your pain is not controlled and you have a fever Follow-up/Referrals: Chris Frank MD [Primary Care Provider] - 11/20/21 12:20 pm Diet: Carb Consistent or DM2 and Heart Healthy Addtl Attending Provider Instructions: You came to the hospital for evaluation of flank pain and were found to have a kidney stone. On 11/17/2021, urology performed a cystoscopy, left ureteroscopy with stone removal and stent placement. Your urine culture did not grow any bacteria, however there was a suspected underlying infection. You will need to take an antibiotic (cefdinir) twice daily for the next 10 days. You were also started on tamsulosin (Flomax). This will help with pain related to your stent. Pyridium has also been prescribed, you may take this as needed every 8 hours. Pyridium will also make your urine orange. You may also take Tylenol 650 mg every 8 hours scheduled. Resume your home medications of losartan, Metformin, hydrochlorothiazide tomorrow, 11/19/2021. The urology office will call you for follow-up appointment. An appointment has been made for you for your PCP, please keep this appointment as scheduled. It was a pleasure taking care of you. If you need to reach a member of the [facility] hospitalist team about any, please call [phone]. APOLINAR Fortune Pending Studies at Discharge: Yes Studies:: blood cultures Stand-Alone Forms: My [facility], Smoking Cessation Medications and DC Order Prescriptions: New tamsulosin 0.4 mg capsule 0.4 mg PO DAILY Qty: 30 RF: 0 cefdinir 300 mg capsule 300 mg PO BID 10 Days Qty: 20 RF: 0 phenazopyridine [Pyridium] 100 mg tablet 100 mg PO Q8H PRN (Reason: pain) Qty: 7 RF: 0 Continued multivitamin Tablet 1 tab PO DAILY RF: 0 citalopram [Celexa] 10 mg Tablet 10 mg PO DAILY RF: 0 simvastatin 10 mg Tablet 10 mg PO DAILY RF: 0 calcium carbonate-vitamin D3 [Calcium 600 + D(3)] 600 mg-5 mcg (200 unit) Tablet 2 tab PO DAILY RF: 0 aspirin 81 mg Tablet,Delayed Release (Dr/Ec) 81 mg PO DAILY RF: 0 cyanocobalamin (vitamin B-12) [Vitamin B-12] 500 mcg Tablet 500 mcg PO DAILY RF: 0 calcium polycarbophil [FiberCon] 625 mg Tablet 1,250 mg PO DAILY RF: 0 hydrochlorothiazide 25 mg Tablet 12.5 mg PO DAILY RF: 0 losartan 100 mg Tablet 100 mg PO DAILY RF: 0 metformin 500 mg Tablet Extended Release 24 Hr 500 mg PO DAILY RF: 0 Discharge Orders: Discharge Order (Routine); Ordered 11/18/21 Ordered By: Geno Blue/Other Patient Handouts: Preventing Kidney Stones Admission Data Admit Date/Time: 11/17/21 02:23 Attending Provider: Gideon Mcnally Admit Provider: Alejandro Flores Primary Care Provider: Chris Frank Other Providers: Alejandro Flores ; Delvis Davis ; Anuel Keyes ; Justo Francisco ; Geno Escalante ; Ruiz Brink ; Chani Hook ; Kimber Sheth ; Mojgan Ny ; Faisal Diaz ; Adalberto Carlos ; Claudia Vanegas ; Etelvina Ny ; Jose Medrano Other Interventions: Discharge Summary Assessment (RN) Last Done: 11/18/21 14:29
[2021-11-23 03:17] LABS: Component 2 DNR; Source URETERAL STONE
== END 2021-11-18 16:30 | disposition home or self-care (01) | DRG 661 ==
LOC: ED 22:19 → 3W 11-17 02:23